=== PATIENT | male | born 1960 | race Caucasian/White ===

== ENCOUNTER → 2017-02-01 | Emergency (ER) | payer MEDICAID ==
[2017-02-01 19:18] VITALS: BP 130/90; PULSE 109; RESP 18; TEMP 97.9; O2SAT 97
== END | disposition left against medical advice (07) ==
DX: Z53.21 Procedure and treatment not carried out due to patient leaving prior to being seen by health care provider (principal)

== ENCOUNTER 2017-06-12 22:24 | Emergency (ER) | payer MEDICAID ==
[2017-06-12 22:33] VITALS: TEMP 98.1
--- NOTE | 2017-06-12 22:33 | EDPHY ---
H & P Stated Complaint: back pain HPI/ROS: HPI CHIEF COMPLAINT: Back pain x2 weeks. HISTORY OF PRESENT ILLNESS: This patient very pleasant 56-year-old male significant past medical history for colorectal cancer status post colon resection, hypertension, diabetes, he presents to the emergency room with back pain x2 weeks. The patient reports to me that over the past 2 weeks she has had intermittent severe sharp stabbing back pain it is a located left CVA region and left posterior superior iliac crest. It does not radiate down his leg but he does tell me at times radiates into his left testicle. Denies urinary symptoms. Denies hematuria or dysuria. Denies abdominal pain. Pain is mainly located left flank left posterior SI joint. Sharp stabbing in nature. He denies is going down his gluteus or down his leg. Denies pain going to his knee or foot. 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 Denies direct trauma. He denies bowel or bladder incontinence or retention. Denies saddle anesthesia. Denies midline lumbar back pain. Denies fever. Denies focal weakness numbness or tingling. No chest pain or shortness of breath. No pleuritic pain. Past Medical History: Hypertension, diabetes, colon cancer Past Surgical History: Colon resection Social History: Denies daily use of alcohol drugs works as a cook. Family History: Noncontributory ROS REVIEW OF SYSTEMS: A comprehensive 10 point review of systems is otherwise negative aside from elements mentioned in the history of present illness. Exam Constitutional appears well nontoxic, triage nursing summary reviewed, vital signs reviewed, awake/alert. Eyes normal conjunctivae and sclera, EOMI, PERRLA. HENT normal inspection, atraumatic, moist mucus membranes, no epistaxis, neck supple/ no meningismus, no raccoon eyes. Respiratory clear to auscultation bilaterally, normal breath sounds, no respiratory distress, no wheezing. Cardiovascular rate normal, regular rhythm, no murmur, no edema, distal pulses normal. Gastrointestinal soft, non-tender, no rebound, no guarding, normal bowel sounds, no distension, no pulsatile mass. Genitourinary no CVA tenderness. Musculoskeletal lumbar spine: no midline vertebral tenderness, full range of motion, no calf swelling, no tenderness of extremities, no meningismus, good pulses, neurovascularly intact. Nontender back exam. Skin pink, warm, & dry, no rash, skin atraumatic. Neurologic awake, alert and oriented x 3, AAOx3, moves all 4 extremities equally, motor intact, sensory intact, CN II-XII intact, normal cerebellar, normal vision, normal speech. Psychiatric normal mood/affect. Heme/Lymph/Immune no lymphadenopathy. Differential Diagnosis: Includes but is not limited to in a particular order compression fracture, sciatica, nerve root compression, annular tear, kidney stone, hydronephrosis, kidney tumor, metastatic disease, Doubt AAA (given pain has been present for two weeks) Medical Decision Making: Plan for this patient x-ray lumbar spine, basic blood work, CT abdomen pelvis without contrast to help evaluate left acute flank pain radiating to left testicle at times. Re-evaluation: 2257: Patient is declining any pain medicine here in the emergency room. CT scan of the abdomen pelvis without IV contrast The results of the study are negative for acute kidney stone, there is degenerative joint disease seen on his back but no significant fracture no evidence kidney stone, no evidence of hydronephrosis on the left side. He does have a kidney stone in the right kidney nonobstructing. Gallstones present. But this is not where his pain is. The study was read by Dr. Davidson I viewed the images myself on the PACS system. 0038: Blood work reviewed, CT scan reviewed. Urinalysis reviewed shows mild hematuria. Will have him follow up with his primary care doctor. Also will have him follow-up with his primary care doctor about his l back pain. Most likely this is disc disease versus sciatica. I did spend a great deal time with him at bedside explaining his lab results and CT scan. I have also given copies of this to take to his primary care doctor. He understands most likely this is arthritic process in disc disease giving him his low back pain. He understands return emergency room if he has any worsening symptoms questions concerns. Limited supply of [place] given. I do recommend he ice his back, takes anti-inflammatories and only takes [place] if he has severe pain. Source: Patient - Personal History Current Tetanus/Diphtheria Vaccine: Yes Current Tetanus Diphtheria and Acellular Pertussis (TDAP): Yes - Medical/Surgical History Hx Asthma: No Hx Chronic Respiratory Disease: No Hx Diabetes: Yes Hx Cardiac Disease: Yes Hx Renal Disease: Yes Hx Cirrhosis: No Hx Alcoholism: Yes Hx HIV/AIDS: No Hx Splenectomy or Spleen Trauma: No Other PMH: PMH:hypertension, ptsd, tbi, diab type 2. Colon Ca surgery 3 months ago 10/2016. - Social History Smoking Status: Former smoker Constitutional: Initial Vital Signs Temperature (C) 36.7 C 06/12/17 22:29 Heart Rate 67 06/12/17 22:29 Respiratory Rate 16 06/12/17 22:29 Blood Pressure 143/79 H 06/12/17 22:29 O2 Sat (%) 96 06/12/17 22:29 O2 Delivery Mode Room Air Allergies/Adverse Reactions: No Known Allergies Allergy (Verified 06/18/16 16:41) Home Medications: Medication Instructions Recorded Lisinopril 0.5 tab DAILY 08/14/16 metFORMIN HCL [Metformin HCl ER] 500 mg PO 09/08/16 Aspirin 06/12/17 Glipizide 06/12/17 Tragenta 06/12/17 Medical Decision Making - Diagnostics Imaging Results: Imaging Impressions Abdomen/Pelvis CT 06/12/17 22:45 Impression: 1. Single nonobstructing right renal calculus with no obstructive uropathy identified. 2. Cholelithiasis without findings to suggest cholecystitis. 3. Mild prostatic enlargement. 4. Mild spinal degenerative changes seen. Results called and discussed with Davidson Luciano MD on 06/12/2017 at 23:37 - Data Points Laboratory Results: Laboratory Results 06/12/17 22:55 06/12/17 22:55 06/12/17 06/12/17 06/12/17 23:50 22:55 22:55 WBC 11.47 10^3/uL H 10^3/uL (3.80-9.50) RBC 4.56 10^6/uL 10^6/uL (4.40-6.38) Hgb 14.6 g/dL g/dL (13.7-17.5) Hct 41.5 % % (40.0-51.0) MCV 91.0 fL fL (81.5-99.8) MCH 32.0 pg pg (27.9-34.1) MCHC 35.2 g/dL g/dL (32.4-36.7) RDW 11.9 % % (11.5-15.2) Plt Count 157 10^3/uL 10^3/uL (150-400) MPV 9.9 fL fL (8.7-11.7) Neut % (Auto) 87.5 % H % (39.3-74.2) Lymph % (Auto) 6.3 % L % (15.0-45.0) Harvey % (Auto) 4.6 % % (4.5-13.0) Eos % (Auto) 0.9 % % (0.6-7.6) Baso % (Auto) 0.3 % % (0.3-1.7) Nucleat RBC Rel Count 0.0 % % (0.0-0.2) Absolute Neuts (auto) 10.03 10^3/uL H 10^3/uL (1.70-6.50) Absolute Lymphs (auto) 0.72 10^3/uL L 10^3/uL (1.00-3.00) Absolute Monos (auto) 0.53 10^3/uL 10^3/uL (0.30-0.80) Absolute Eos (auto) 0.10 10^3/uL 10^3/uL (0.03-0.40) Absolute Basos (auto) 0.04 10^3/uL 10^3/uL (0.02-0.10) Absolute Nucleated RBC 0.00 10^3/uL 10^3/uL (0-0.01) Immature Gran % 0.4 % % (0.0-1.1) Immature Gran # 0.05 10^3/uL 10^3/uL (0.00-0.10) Sodium 144 mEq/L mEq/L (134-144) Potassium 3.9 mEq/L mEq/L (3.5-5.2) Chloride 110 mEq/L mEq/L (97-110) Carbon Dioxide 19 mEq/l L mEq/l (22-31) Anion Gap 15 mEq/L mEq/L (8-16) BUN 24 mg/dL H mg/dL (7-23) Creatinine 1.0 mg/dL mg/dL (0.7-1.3) Estimated GFR > 60 Glucose 165 mg/dL H mg/dL (70-100) Calcium 9.3 mg/dL mg/dL (8.5-10.4) Urine Color YELLOW Urine Appearance CLEAR Urine pH 5.0 (5.0-7.5) Ur Specific [place] 1.031 H (1.002-1.030) Urine Protein NEGATIVE (NEGATIVE) Urine Ketones 1+ H (NEGATIVE) Urine Blood 2+ H (NEGATIVE) Urine Nitrate NEGATIVE (NEGATIVE) Urine Bilirubin NEGATIVE (NEGATIVE) Urine Urobilinogen 4.0 EU H EU (0.2-1.0) Ur Leukocyte Esterase NEGATIVE (NEGATIVE) Urine RBC 25-50 /hpf H /hpf (0-3) Urine WBC 1-3 /hpf /hpf (0-3) Ur Epithelial Cells NONE SEEN /lpf /lpf (NONE-1+) Urine Mucus TRACE /lpf /lpf (NONE-1+) Urine Glucose NEGATIVE (NEGATIVE) Departure - Departure Disposition: Home, Routine, Self-Care Clinical Impression: Back pain Qualifiers: Back pain location: low back pain Chronicity: acute Back pain laterality: left Sciatica presence: unspecified whether sciatica present Qualified Code(s): M54.5 - Low back pain Condition: Good Instructions: Acute Low Back Pain (ED), Lumbar Radiculopathy (ED), Hydrocodone/ Acetaminophen (By mouth), Hematuria (ED) Additional Instructions: 1.Ice your back. 2. Follow-up with your primary care doctor. 3. Try to rest, take anti-inflammatories like tylenol and motrin. 4. Only take [place] if you have severe pain. Referrals: Milady Joiner PA [Primary Care Provider] - As per Instructions
[2017-06-12 22:58] LABS: % IMMATURE GRANULYOCYTES 0.4 % (0.0-1.1); ABSOLUTE IMMATURE GRANULOCYTES 0.05 10^3/uL (0.00-0.10); ADD DIFF? NO; ADD MORPH? NO; ADD SCAN? NO; ATYPICAL LYMPHOCYTE FLAG 0 (0-99); FRAGMENT RBC FLAG 0 (0-99); HEMATOCRIT 41.5 % (40.0-51.0); HEMOGLOBIN 14.6 g/dL (13.7-17.5); LEFT SHIFT FLG 10 (0-99); LIPEMIA HEMOLYSIS FLAG 90 (0-99); MEAN CELL HEMOGLOBIN CONCENTR. 35.2 g/dL (32.4-36.7); MEAN PLATELET VOLUME 9.9 fL (8.7-11.7); PLATELET CLUMPS FLAG 10 (0-99); PLATELET COUNT 157 10^3/uL (150-400); RED BLOOD CELL COUNT 4.56 10^6/uL (4.40-6.38); RED CELL DISTRIBUTION WIDTH 11.9 % (11.5-15.2)
[2017-06-12 23:10] LABS: ANION GAP 15 mEq/L (8-16); CALCIUM 9.3 mg/dL (8.5-10.4); CARBON DIOXIDE 19 mEq/l (22-31); CHLORIDE 110 mEq/L (97-110); GLOMERULAR FILTRATION RATE > 60; GLUCOSE 165 mg/dL (70-100); POTASSIUM 3.9 mEq/L (3.5-5.2); SODIUM 144 mEq/L (134-144)
[2017-06-13 00:25] LABS: COLOR YELLOW; LEUKOCYTE ESTERASE,URINE NEGATIVE (NEGATIVE); NITRITE,URINE NEGATIVE (NEGATIVE)
[2017-06-13 00:34] LABS: MUCUS TRACE /lpf (NONE-1+); RBC,URINE 25-50 /hpf (0-3)
[2017-06-13] MEDS ORDERED: HYDROCOD/APAP 5/325 PREPACK#6 BTL TAKEHOME ONE (00:37)
[2017-06-13 00:46] VITALS: BP 136/67; PULSE 69; RESP 14; O2SAT 97
== END 2017-06-13 00:51 | disposition home or self-care (01) ==
DX: M54.5 Low back pain (principal); E11.9 Type 2 diabetes mellitus without complications; I10 Essential (primary) hypertension; Z79.82 Long term (current) use of aspirin; Z79.84 Long term (current) use of oral hypoglycemic drugs; Z85.038 Personal history of other malignant neoplasm of large intestine; Z87.891 Personal history of nicotine dependence

== ENCOUNTER 2017-11-01 10:54 | Emergency (ER) | payer MEDICAID ==
[2017-11-01] MEDS ORDERED: NS 1,000 ML IV ONE ×2 (11:31)
--- NOTE | 2017-11-01 11:35 | EDPHY ---
General Narrative: CHIEF COMPLAINT: Diarrhea HISTORY OF PRESENT ILLNESS: Patient complains of diarrhea that started Wednesday evening. This was sudden onset. Constant duration with 20-25 episodes of watery diarrhea each day. No bright red blood in the stools. Did have 2 bouts of vomiting that preceded this. No blood in the vomit. No chest pain or shortness of breath. No abdominal pain but he does have some discomfort with the bowel movements. Unable to tolerate solids. Liquids seem to run directly through him he says. No fever. No chills. No known sick contacts. He does reside at the [facility] at this time. Not currently working. No other associated complaints or modifying factors. REVIEW OF SYSTEMS: Ten systems reviewed and are negative unless otherwise noted in the HPI PCP: Dr. Virgen SPECIALISTS: Dr. Horn, Surgery PAST MEDICAL HISTORY: Type 2 diabetes, hypertension, Colon cancer 1 years ago status post partial colectomy PAST SURGICAL HISTORY: Partial colectomy is 21in 2015 SOCIAL HISTORY: Nonsmoker. Occasional alcohol. No drug use. Retired from the [employer] FAMILY HISTORY: Noncontributory EXAMINATION General Appearance: Alert, no distress Head: normocephalic, atraumatic Eyes: Pupils equal and round, no conjunctival pallor or injection ENT, Mouth: Mucous membranes dry. Airway is patent Neck: Normal inspection, supple, non-tender Respiratory: Lungs are clear to auscultation Cardiovascular: Tachycardic rate. Regular rhythm. No murmur. Gastrointestinal: Abdomen is soft and nontender. nondistended. No tympany. No rigidity. Bowel sounds are active in all 4 quadrants. Nonacute abdomen Neurological: A&O, nonfocal, strength is symmetric. Skin: Warm and dry, no rash. No petechiae or purpura Extremities: Nontender, no pedal edema Psychiatric: Mood and affect normal DIFFERENTIAL DIAGNOSES: Including but not limited to norovirus, infectious diarrhea, viral diarrhea, enteritis, colitis, dehydration MDM: 11:30 a.m. Multiple bouts of watery diarrhea over 48 hr. The patient has a history and examination that suggest norovirus. He is in no acute distress with mild tachycardia. No tachypnea. No fever. He does not meet SIRS criteria. IV fluid has been ordered. Laboratory studies pending. He is in no acute distress. 12:30 p.m. Patient re-evaluated. Laboratory studies are consistent with diarrhea. He is still afebrile and his vital signs are improving. Continue with IV fluid. I do not feel he warrants CT scan at this time. 1:30 p.m. Patient re-evaluated. He has received 2 L IV fluid. Laboratory studies discussed. There is a GI pathogen panel pending that will not returned within the past 2 hr. He is tolerating liquid intake. He has not had any diarrhea since arrival to the emergency department. I still do not feel that he warrants any CT scan of the abdomen pelvis at this time as he has no abdominal pain. At this point he will be discharged home with antiemetics, instructions to increase his fluid intake. We have also discussed ED precautions for any abdominal pain of any kind, fevers, worsening diarrhea, blood he is discharged home stable condition. SUPERVISION: Patient was independently examined, but I discussed the case with my secondary supervising physician Dr. Barnes - History Smoking Status: Never smoked - Objective Vital Signs: Initial Vital Signs Temperature (C) 98.4 F 11/01/17 11:00 Heart Rate 123 H 11/01/17 11:00 Respiratory Rate 18 11/01/17 11:00 Blood Pressure 109/61 11/01/17 11:00 O2 Sat (%) 98 11/01/17 11:00 O2 Delivery Mode Room Air Allergies/Adverse Reactions: No Known Allergies Allergy (Verified 11/01/17 11:00) Home Medications: Medication Instructions Recorded Lisinopril 0.5 tab DAILY 08/14/16 metFORMIN HCL [Metformin HCl ER] 500 mg PO 09/08/16 Aspirin 06/12/17 Glipizide 06/12/17 Tragenta 06/12/17 FLUoxetine [PROzac] 10 mg PO 11/01/17 Ondansetron Odt [Zofran Odt 4 mg 4 mg PO Q6 PRN #12 tab 11/01/17 (*)] Promethazine HCl [Phenergan 25mg 25 mg PO Q8 PRN #12 tab 11/01/17 (*)] Laboratory Results: Laboratory Results 11/01/17 11:25 11/01/17 11:25 11/01/17 11/01/17 11/01/17 12:55 11:25 11:25 WBC 11.25 10^3/uL H 10^3/uL (3.80-9.50) RBC 5.20 10^6/uL 10^6/uL (4.40-6.38) Hgb 16.8 g/dL g/dL (13.7-17.5) Hct 46.6 % % (40.0-51.0) MCV 89.6 fL fL (81.5-99.8) MCH 32.3 pg pg (27.9-34.1) MCHC 36.1 g/dL g/dL (32.4-36.7) RDW 12.7 % % (11.5-15.2) Plt Count 223 10^3/uL 10^3/uL (150-400) MPV 9.2 fL fL (8.7-11.7) Neut % (Auto) 73.1 % % (39.3-74.2) Lymph % (Auto) 14.9 % L % (15.0-45.0) [place] % (Auto) 8.7 % % (4.5-13.0) Eos % (Auto) 2.0 % % (0.6-7.6) Baso % (Auto) 0.4 % % (0.3-1.7) Nucleat RBC Rel Count 0.0 % % (0.0-0.2) Absolute Neuts (auto) 8.21 10^3/uL H 10^3/uL (1.70-6.50) Absolute Lymphs (auto) 1.68 10^3/uL 10^3/uL (1.00-3.00) Absolute Monos (auto) 0.98 10^3/uL H 10^3/uL (0.30-0.80) Absolute Eos (auto) 0.23 10^3/uL 10^3/uL (0.03-0.40) Absolute Basos (auto) 0.05 10^3/uL 10^3/uL (0.02-0.10) Absolute Nucleated RBC 0.00 10^3/uL 10^3/uL (0-0.01) Immature Gran % 0.9 % % (0.0-1.1) Immature Gran # 0.10 10^3/uL 10^3/uL (0.00-0.10) Sodium 142 mEq/L mEq/L (134-144) Potassium 4.0 mEq/L mEq/L (3.5-5.2) Chloride 105 mEq/L mEq/L (97-110) Carbon Dioxide 19 mEq/l L mEq/l (22-31) Anion Gap 18 mEq/L H mEq/L (8-16) BUN 18 mg/dL mg/dL (7-23) Creatinine 1.1 mg/dL mg/dL (0.7-1.3) Estimated GFR > 60 Glucose 149 mg/dL H mg/dL (70-100) Calcium 9.7 mg/dL mg/dL (8.5-10.4) Total Bilirubin 1.8 mg/dL H mg/dL (0.1-1.4) Conjugated Bilirubin 0.4 mg/dL mg/dL (0.0-0.5) Unconjugated Bilirubin 1.4 mg/dL H mg/dL (0.0-1.1) AST 25 IU/L IU/L (17-59) ALT 59 IU/L IU/L (21-72) Alkaline Phosphatase 96 IU/L IU/L (38-126) Total Protein 7.6 g/dL g/dL (6.3-8.2) Albumin 4.5 g/dL g/dL (3.5-5.0) Lipase 114 IU/L IU/L (23-300) Urine Color SYBIL Urine Appearance CLEAR Urine pH 5.0 (5.0-7.5) Ur Specific [place] 1.026 (1.002-1.030) Urine Protein NEGATIVE (NEGATIVE) Urine Ketones NEGATIVE (NEGATIVE) Urine Blood NEGATIVE (NEGATIVE) Urine Nitrate NEGATIVE (NEGATIVE) Urine Bilirubin NEGATIVE (NEGATIVE) Urine Urobilinogen NEGATIVE EU EU (0.2-1.0) Ur Leukocyte Esterase NEGATIVE (NEGATIVE) Urine RBC 3-5 /hpf H /hpf (0-3) Urine WBC 1-3 /hpf /hpf (0-3) Ur Epithelial Cells TRACE /lpf /lpf (NONE-1+) Calcium Oxalate Crystal PRESENT /hpf /hpf (NONE-1+) Urine Bacteria TRACE /hpf H /hpf (NONE SEEN) Urine Mucus 4+ /lpf H /lpf (NONE-1+) Urine Glucose 1+ H (NEGATIVE) Microbiology Results: MICROBIOLOGY 11/01/17 12:55 Stool Gastrointestinal Tract Panel (PCR) - Final No Organism Detected Medications Given: Discontinued Medications Sodium Chloride (Ns) 1,000 mls @ 0 mls/hr IV EDNOW ONE; Wide Open PRN Reason: Protocol Stop: 11/01/17 11:32 Last Admin: 11/01/17 12:00 Dose: 1,000 mls Sodium Chloride (Ns) 1,000 mls @ 0 mls/hr IV EDNOW ONE; Wide Open PRN Reason: Protocol Stop: 11/01/17 11:32 Last Admin: 11/01/17 12:34 Dose: 1,000 mls Departure - Departure Disposition: Home, Routine, Self-Care Clinical Impression: Diarrhea Qualifiers: Diarrhea type: unspecified type Qualified Code(s): R19.7 - Diarrhea, unspecified Condition: Good Instructions: Dehydration (ED), Gastroenteritis (ED), Acute Diarrhea (ED) Additional Instructions: 1. Increase fluid intake 2. Nausea medication as prescribed as needed 3. ED precautions as discussed 4. Follow up with established primary care physician in the next 1-2 days Referrals: Paola Smith, PAC [Primary Care Provider] - As per Instructions Prescriptions: Ondansetron Odt [Zofran Odt 4 mg (*)] 4 mg PO Q6 PRN #12 tab PRN Reason: Nausea/Vomiting, Use 1st Promethazine HCl [Phenergan 25mg (*)] 25 mg PO Q8 PRN #12 tab PRN Reason: Nausea/Vomiting, Use 1st
[2017-11-01 11:37] LABS: % IMMATURE GRANULYOCYTES 0.9 % (0.0-1.1); ADD DIFF? NO; ADD MORPH? NO; ADD SCAN? NO; ATYPICAL LYMPHOCYTE FLAG 0 (0-99); FRAGMENT RBC FLAG 0 (0-99); HEMATOCRIT 46.6 % (40.0-51.0); HEMOGLOBIN 16.8 g/dL (13.7-17.5); LEFT SHIFT FLG 10 (0-99); LIPEMIA HEMOLYSIS FLAG 90 (0-99); MEAN CELL HEMOGLOBIN 32.3 pg (27.9-34.1); MEAN CELL HEMOGLOBIN CONCENTR. 36.1 g/dL (32.4-36.7); MEAN CELL VOLUME 89.6 fL (81.5-99.8); MEAN PLATELET VOLUME 9.2 fL (8.7-11.7); PLATELET CLUMPS FLAG 0 (0-99); PLATELET COUNT 223 10^3/uL (150-400); RED CELL DISTRIBUTION WIDTH 12.7 % (11.5-15.2)
[2017-11-01 11:49] LABS: ALANINE AMINOTRANSFERASE 59 IU/L (21-72); ALBUMIN 4.5 g/dL (3.5-5.0); ALKALINE PHOSPHATASE 96 IU/L (38-126); ANION GAP 18 mEq/L (8-16); ASPARTATE AMINOTRANSFERASE 25 IU/L (17-59); BILIRUBIN,TOTAL 1.8 mg/dL (0.1-1.4); BILIRUBIN-CONJUGATED 0.4 mg/dL (0.0-0.5); BILIRUBIN-UNCONJUGATED 1.4 mg/dL (0.0-1.1); CALCIUM 9.7 mg/dL (8.5-10.4); CARBON DIOXIDE 19 mEq/l (22-31); CHLORIDE 105 mEq/L (97-110); CREATININE 1.1 mg/dL (0.7-1.3); GLOMERULAR FILTRATION RATE > 60; GLUCOSE 149 mg/dL (70-100); SODIUM 142 mEq/L (134-144); TOTAL PROTEIN 7.6 g/dL (6.3-8.2)
[2017-11-01 13:18] LABS: COLOR AMBER; LEUKOCYTE ESTERASE,URINE NEGATIVE (NEGATIVE); NITRITE,URINE NEGATIVE (NEGATIVE)
[2017-11-01 13:46] VITALS: BP 104/68; PULSE 76; RESP 16; TEMP 97.9; O2SAT 95
[2017-11-01 14:02] LABS: BACTERIA TRACE /hpf (NONE SEEN); MUCUS 4+ /lpf (NONE-1+)
== END 2017-11-01 13:55 | disposition home or self-care (01) ==
DX: R19.7 Diarrhea, unspecified (principal); I10 Essential (primary) hypertension; E11.9 Type 2 diabetes mellitus without complications; E86.9 Volume depletion, unspecified; Z79.82 Long term (current) use of aspirin; Z79.84 Long term (current) use of oral hypoglycemic drugs; Z85.038 Personal history of other malignant neoplasm of large intestine

== ENCOUNTER 2017-11-23 10:30 | Emergency (ER) | payer MEDICAID ==
[~2017-11-23 10:30] MED LIST: AMOXICILLIN/CLAVULANATE POT 875/125 MG TAB PO SCH
[2017-11-23 12:23] LABS: PLATELET COUNT 150 10^3/uL (150-400)
--- NOTE | 2017-11-23 12:23 | EDPHY ---
Addendum entered and electronically signed by Wilber Hearn PAC 11/23/17 16:50 : 4:50 p.m.: Dr. Jose Davidson and Dr. Chantal Eric have evaluated the patient in the ER, have debrided the wound, feel the patient does not need to be admitted to the hospital, recommended Augmentin 875 twice daily for 5 days and follow up in the [facility]ound Clinic for further treatment. The egg caser has been involved in this case, has filled the patient's Augmentin prescription and assisted him getting back to the [place] [facility]. Original Note: H & P Smoking Status: Never smoked Time Seen by Provider: 11/23/17 12:11 HPI/ROS: CHIEF COMPLAINT: "I have this thing on my foot" HISTORY OF PRESENT ILLNESS: 57-year-old male history of diabetes, homelessness , took the bus to the ER complaining of progressively enlarging lesion to the plantar aspect of his left forefoot approximately 2nd 3rd MTP location. Tender to palpation. Denies known trauma history. No fever no chills. No lymphangitic streaking. No nausea no vomiting. No flu-like symptoms. REVIEW OF SYSTEMS: A ten point review of systems was performed and is negative with the exception of the items mentioned in the HPI PAST MEDICAL & SURGICAL HISTORY: MRSA. Diabetes. SOCIAL HISTORY:Homeless PHYSICAL EXAM (Prior to examination, patient consented to physical exam, hands were washed and my usual and customary physical exam procedures followed) 1) GENERAL: Well-developed, well-nourished, alert and oriented. Appears to be in no acute distress. 2) HEAD: Normocephalic, atraumatic 3) HEENT: Pupils equal, round, reactive to light bilaterally. Sclera anicteric. 4) NECK: Full range of motion, no meningeal signs. 5) LUNGS: Clear auscultation bilaterally, no wheezes, no rhonchi, no retractions. 6) HEART: Regular rate and rhythm, no murmur, no heave, no gallop. 7) ABDOMEN: No guarding, no rebound, no focal tenderness, 8) MUSCULOSKELETAL: Left foot plantar aspect forefoot approximately 2nd 3rd MTP level ulcerated foul-smelling wound. No crepitus. No lymphangitic streaking. No erythema. DP PT pulses present and brisk. 9) BACK: no obvious trauma, no visual or palpable abnormality. 10) SKIN: No rash, no petechiae. 11) Psychiatric: Patient is oriented X 3, there is no agitation. DIFFERENTIAL DIAGNOSIS: In no particular include but limited to cellulitis, necrotizing fasciitis, osteomyelitis (Wilber Hearn) Constitutional: Initial Vital Signs Temperature (C) 36.4 C 11/23/17 10:37 Heart Rate 97 11/23/17 10:37 Respiratory Rate 18 11/23/17 10:37 Blood Pressure 120/92 H 11/23/17 10:37 O2 Sat (%) 98 11/23/17 10:37 O2 Delivery Mode Room Air Allergies/Adverse Reactions: No Known Allergies Allergy (Verified 11/23/17 10:35) Home Medications: Medication Instructions Recorded Amoxicillin/Clavulanate Pot 875 mg PO BID #10 tab 11/23/17 [Augmentin 875 mg tab] Aspirin EC [Aspirin EC 81 mg (*)] 81 mg PO DAILY 11/23/17 Atorvastatin Calcium [Lipitor 40 40 mg PO DAILY 11/23/17 mg (*)] FLUoxetine [Prozac 20 MG (*)] 20 mg PO DAILY 11/23/17 Gabapentin [Neurontin 100 MG (*)] 100 mg PO TID 11/23/17 Linagliptin [Tradjenta] 5 mg PO DAILY 11/23/17 Linagliptin [Tradjenta] 5 mg PO DAILY #3 tablet 11/23/17 Lisinopril 10 mg PO DAILY #3 tablet 11/23/17 Lisinopril [Zestril 20 mg (*)] 20 mg PO DAILY 11/23/17 Metformin HCl [Metformin 1000 mg] 1,000 mg PO BID 11/23/17 Naltrexone HCl 50 mg PO DAILY 11/23/17 Tamsulosin HCl [Flomax 0.4 MG (*)] 0.4 mg PO DAILY 11/23/17 glipiZIDE [Glipizide] 10 mg PO BID 11/23/17 metFORMIN HCL [Metformin HCl ER] 500 mg PO DAILY #3 tab.er.24 11/23/17 MDM/Departure - MDM Imaging Results: Imaging Impressions Foot X-Ray 11/23/17 12:17 Impression: No evidence of osteomyelitis. Lower Extremity MRI 11/23/17 12:53 Impression: Skin wound in the plantar fat pad overlying the 2nd metatarsophalangeal joint to the level of the capsule. Probable early osteomyelitis at the 2nd proximal phalanx. Overlying cellulitis and adjacent mild myositis interosseous muscles. Possible osteomyelitis at the adjacent lateral sesamoid at the 1st metatarsophalangeal joint, with a bipartite appearance versus sesamoiditis. Results called and discussed with Dakota Montesinos M.D., on November 23, 2017 at 1540. Medications Given: Discontinued Medications Sodium Chloride (Ns) 1,000 mls @ 0 mls/hr IV ONCE ONE PRN Reason: Wide Open Stop: 11/23/17 13:01 Last Admin: 11/23/17 13:22 Dose: 1,000 mls ED Course/Re-evaluation: 3:45 p.m.: Consultation Dr. Jose Davidson. Patient shows no signs of surrounding cellulitis. He recommended holding on antibiotics until wound debridement and cultures performed by surgery 4:10 p.m.: Consultation with Dr. Chantal Eric for surgical/wound consultation ( Wilber Hearn) This patient was signed out to me at shift change. The patient was assessed by Dr. Chantal Eric and also by Jose Davidson from Infectious Disease. They have decided that admission is not warranted. They would like to treat the patient with Augmentin. 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 Davidson does not believe he requires coverage for that at this time. They do want to cover anaerobes well which is why he is on Augmentin. He has close follow-up with the wound clinic and Dr. Eric. (Yoandy Ellis) PHYSICIAN DOCUMENTATION: The patient was evaluated and managed by the Physician Solutions Developer and myself. I have reviewed the chart and agree with the findings and plan of care as documented. In addition, I examined the patient myself at 1235. History confirmed as left foot ulcer plantar surface for 3 weeks. Physical findings as follows: Patient has 1 cm ulcer with surrounding scab. No crepitus. No pus. No surrounding redness warmth or lymphangitis. Differential includes diabetic ulcer but also osteomyelitis. Plan for MRI w/wo contrast, discussed with Ramez, and admission for IV antibiotics if positive, wound care and medication refill and outpatient referral to wound clinic if negative. 1536: Patient has osteomyelitis of his 4th phalanx on MRI per Dr. Mcmillan, will admit for IV antibiotics illness homeless diabetic with deep space infection. We discussed with Dr. Aisha Squires who will admit. I am the secondary supervising physician. (Dakota Montesinos) - Depart Disposition: Home, Routine, Self-Care Clinical Impression: Osteomyelitis of foot, left, acute Condition: Good
[2017-11-23] MEDS ORDERED: NS 1,000 ML IV ONE (13:00)
[2017-11-23 14:20] VITALS: RESP 16
[2017-11-23] MEDS ORDERED: GADOBUTROL 10 ML VIAL IVP ONE (14:48)
[2017-11-23] MEDS ORDERED: ONDANSETRON DISINTEGRATING 4 MG TAB PO PRN (16:24)
[2017-11-23] MEDS ORDERED: ACETAMINOPHEN 325 MG TAB PO PRN (16:24)
[2017-11-23] MEDS ORDERED: ONDANSETRON 4 MG/2 ML VIAL IVP PRN (16:24)
[2017-11-23] MEDS ORDERED: D50W 25 GM/50 ML SYR IVP PRN (16:25)
[2017-11-23 17:37] VITALS: BP 120/89; PULSE 76; TEMP 98.6; O2SAT 96
[2017-11-23] MEDS ORDERED: INSULIN LISPRO 100 UNIT/ML SC SCH (18:00)
--- NOTE | 2017-11-23 18:29 | GCON ---
[f rep st] CONSULTATION DATE OF CONSULTATION: 11/23/2017 REQUESTING PROVIDER: ISA Gary REASON FOR CONSULTATION: Osteomyelitis of the left 2nd toe. HISTORY OF PRESENT ILLNESS: Patient is a 57-year-old male with a past medical history of diabetes me llitus and peripheral neuropathy who is currently homeless, who I am asked to see in consultation for a left foot plantar ulceration with radiographic concern for osteomyelitis. The patient describes h aving an ulceration present over the plantar aspect of the left foot under the 2nd toe for approximat bob 2-1/2 to 3 weeks. He does not recall any injury to his foot. He does have underlying peripheral neuropathy and decreased sensation in his foot. He has been wearing a work-type boot. The patient has had some drainage onto his sock which has appeared bloody. He has not experienced fever or chill s. He does note that he does not feel totally well with some malaise. He has not had erythema over the foot, lower leg, or lymphangitis. He has had prior ulceration in the same location on 2 occasion s remotely, which required local debridement and oral antibiotic therapy. He notes one of these was associated with MRSA. The patient has not experienced nausea, vomiting or diarrhea. He has been out of his medications for diabetes due to a change in his healthcare providers. MRI of the foot was pe rformed, which raised concern of possible osteomyelitis at the base of the 2nd toe. Given the above findings, I am now asked to assist in his ongoing management. PAST MEDICAL HISTORY: Type 2 diabetes mellitus, colon cancer. PAST SURGICAL HISTORY: Resection of colon cancer, prior head injury, debridement of foot. MEDICATIONS: Prior to admission: None due to him being out of his medicines; normally patient takes naltrexone 50 mg p.o. daily, Neurontin 100 mg p.o. t.i.d., Lipitor 40 mg p.o. daily, Flomax 0.4 mg p .o. daily, linagliptin 5 mg p.o. daily, metformin 1000 mg p.o. b.i.d., lisinopril 20 mg p.o. daily, g lipizide 10 mg p.o. b.i.d., Prozac 20 mg p.o. daily, aspirin 81 mg p.o. daily. ALLERGIES: No known drug allergies. SOCIAL HISTORY: Patient chews tobacco. He has a history of drinking alcohol but no active alcohol u se for 2 months. He denies any drug use. He currently is homeless and has been staying in the [facility]. FAMILY HISTORY: Noncontributory. REVIEW OF SYSTEMS: Outside that noted in the HPI, the remainder of 10-system review is unremarkable. PHYSICAL EXAMINATION: VITAL SIGNS: Temperature 36.7, heart rate 68, respiratory rate 16, blood pres sure 135/84, oxygen saturation 97% on room air. GENERAL: Patient is well nourished, well developed, in no acute distress. He appears nontoxic. HEENT: There is no scleral icterus, conjunctival injec tion, or conjunctival petechiae. Oropharynx shows moist mucous membranes with dentition in fair to p oor repair. There is no nasal discharge. There is no tenderness over the frontal, maxillary or mast oid area. NECK: Supple without lymphadenopathy or palpable thyromegaly. CHEST: Clear to auscultat ion bilaterally without adventitious sounds. Respiratory effort is normal. CARDIOVASCULAR: Regular rate and rhythm without murmurs, gallops, or rubs. ABDOMEN: Soft, nontender, nondistended. Well-h ealed surgical scar. No palpable organomegaly. Bowel sounds are present. MUSCULOSKELETAL: The lef t foot shows an ulceration measuring approximately 1.5 cm in diameter with surrounding callus over th e plantar aspect of the left foot below the 2nd toe. There is no purulent drainage present. Toe was debrided by Dr. Eric in the emergency department with clean granulation at its base and removal of callus. The area does probe toward the base of the metatarsal, but there is no palpable or exposed b one. The dorsal aspect of the foot has faint erythema and edema. There is mild associated warmth. LYMPHATICS: No cervical or supraclavicular nodes. No lymphangitis in the left lower extremity. JESSENIA ROLOGIC: Patient is alert and interacts appropriately with the examiner. Cranial nerves 2-12 are gr ossly intact. Sensation is decreased in the lower extremities, but not absent. Muscle tone and bulk are normal. LABORATORY DATA: White blood cell count 8.4, hematocrit 41.4, platelets 150, neutrophils 76%. Serum creatinine is 0.9, glucose 260. Blood cultures x2 sets are pending. Plain film of the foot shows n o evidence of osteomyelitis. MRI of the foot shows edema with some mild enhancement at the base of t he 2nd proximal phalanx with question of some cortical irregularity (when reviewed with Radiology, th is was not noted). IMPRESSION: 1. Left plantar ulceration with peripheral neuropathy and diabetes mellitus: Ulceration post debrid ement shows clean granulation tissue without evidence of abscess. There is no exposed bone present. Unclear that MRI changes represent osteomyelitis versus potentially sympathetic edema. We will need to review this further with musculoskeletal radiology when available. Currently, may have mild cell ulitis over the dorsal aspect of the foot. Will provide Augmentin 875 mg p.o. b.i.d. (MRSA history i s remote) x5 days post ulcer debridement. The patient will need pressure offloading in order to heal this ulceration. Discussed with patient that if osteomyelitis is present, this may progress and req uire additional debridement or amputation. Do not favor 6-week course of antibiotic therapy at this point in time based on clinical findings. We will continue to follow in the [facility] wit h plans for contact casting for pressure offloading if no signs or symptoms of infection at next exam ination. RECOMMENDATIONS: 1. Augmentin 875 mg orally twice daily. 2. Emphasized need for glycemic control. 3. We will follow up in [facility] later this week. 4. Plan contact cast for pressure offloading if continues to be without signs or symptoms of infecti on. 5. Follow clinical response to above measures over time. 6. Thank you for this consultation. We will follow the patient in the [facility]. The [facility] is currently closed and I have obtained the patient's phone numbers to establish a n appointment in the [facility] later this week. 7. Side effects of Augmentin were reviewed with patient. 8. Clinical findings and plan were discussed with patient in the emergency department today. /[id number]/MODL
--- NOTE | 2017-11-23 19:20 | GCON ---
[f rep st] CONSULTATION DATE OF CONSULTATION: 11/23/2017 REASON FOR CONSULTATION: Ulcer on plantar surface of foot. REQUESTING PHYSICIAN: Dr. Dakota Correa. HISTORY OF PRESENT ILLNESS: Patient presents with a wound on the plantar surface of his left foot. He reports that this has been going on for 2-1/2 weeks. Upon questioning, he reports that he has had previous ulcers in the same spot on the left foot in 2012 and 2013, one time being MRSA positive. This wound opened up again 2-1/2 weeks ago. He denies fever or chills. He reports swelling, some mild bloody discharge and a pungent odor from the wound. He denies any pain up in his upper leg or groin. The wound has been growing in size and pain in the last 2-1/2 weeks which led him to come in today. He has run out of his medications and has had difficulty getting them, so he has not currently been taking any medications for his diabetes. PAST MEDICAL HISTORY: Patient reports having colon cancer which was resected and without any recurrence. The patient also has a history of type 2 diabetes with neuropathy in the lower extremities. PAST SURGICAL HISTORY: Includes colon resection due to cancer. SOCIAL HISTORY: Patient reports he is currently homeless and has been staying at the [facility]. He mentions history of heavy alcohol use, his last drink being 1 month ago. ALLERGIES: Patient reports no known drug allergies. Family History: Diabetes Review of Systems: 10 point review of systems negative except per HPI PHYSICAL EXAM: GENERAL: Patient is alert and oriented, in no acute distress. HEENT: Head normocephalic, atraumatic. Eyes: Pupils equal and round. Extraocular movements intact. Normal conjunctivae. Nares patent. Oropharynx clear without exudate. Moist oral mucosa. NECK: Supple without lymphadenopathy. Lungs: No increased work of breathing. Cardiac: 2+ dorsalis pedis pulses bilaterally. Neuro: Decreased sensation in bilateral lower extremities. Skin: An ulcer is present on the plantar surface of his left foot. Lots of callusing with central ulceration. No diffuse erythema on the foot. Some tenderness to palpation upon the base of the 2nd phalynx. PSYCH: Normal mood. Normal affect. LABORATORY DATA: Results reviewed. X-ray of the foot showed some plantar soft tissue swelling and a gas-filled ulcer but no evidence of osteomyelitis. MRI of the left lower extremity showed a skin wound in the plantar fat pad overlying the 2nd metatarsophalangeal joint to the left of the capsule. Possible early osteomyelitis at the 2nd proximal phalanx. Overlying cellulitis and adjacent mild myositis in the interosseous muscles. Also, possible osteomyelitis at the adjacent lateral sesamoid at the 1st metatarsophalangeal joint. PROCEDURE PERFORMED: Verbal consent obtained. Time-out performed. I prepped the wound with Betadine. I debrided the callus around the wound. The wound measures approximately 1 cm x 1 cm x 1 cm. With the forceps it tunnels down to the metatarsal head but I cannot distinctly palpate bone. There does appear to be healthy granulation tissue and no obvious purulent pockets. Hemostasis achieved with electrocautery. Hydrofera Blue placed and the wound wrapped. I gave additional supplies to the patient in the event this should dislodge over the next couple of days. IMPRESSION AND PLAN: The patient is a 57-year-old man with possible osteomyelitis and a diabetic foot ulcer on the plantar surface of his left foot at the base of the 2nd metatarsal. He will follow up in the [facility]. I think he would be an excellent candidate for EpiFix and total contact cast. I emphasized the importance of him following up regularly to avoid amputation. He had his questions answered to his satisfaction. Dr. Davidson prescribed him for Augmentin 875 mg p.o. twice daily for 5 days. /[id number]/MODL MTDD
[2017-11-23] MEDS ORDERED: GABAPENTIN 100 MG CAP PO SCH (22:00)
[2017-11-24] MEDS ORDERED: TAMSULOSIN HCL 0.4 MG CAP PO SCH (09:00)
[2017-11-24] MEDS ORDERED: FLUoxetine 20 MG CAP PO SCH (09:00)
[2017-11-24] MEDS ORDERED: ATORVASTATIN CALCIUM 40 MG TAB PO SCH (09:00)
[2017-11-24] MEDS ORDERED: NON-FORMULARY NEW DRUG (Linagliptin [Tradjenta] 5 MG) PO SCH (09:00)
[2017-11-24] MEDS ORDERED: ENOXAPARIN 40 MG/0.4 ML SYR SC SCH (09:00)
[2017-11-24] MEDS ORDERED: NALTREXONE HCL 50 MG TAB PO SCH (09:00)
[2017-11-24] MEDS ORDERED: LISINOPRIL 20 MG TAB PO SCH (09:00)
[2017-11-24] MEDS ORDERED: ASPIRIN EC 81 MG TAB PO SCH (09:00)
== END 2017-11-23 17:59 | disposition home or self-care (01) ==
LOC: UNDOADMIN 15:37
DX: M86.171 Other acute osteomyelitis, right ankle and foot (principal); E11.9 Type 2 diabetes mellitus without complications; E86.9 Volume depletion, unspecified; Z79.82 Long term (current) use of aspirin; Z79.84 Long term (current) use of oral hypoglycemic drugs
CPT/HCPCS: A9585

== ENCOUNTER 2018-02-03 05:17 | Observation (INO) | payer MEDICAID ==
--- NOTE | 2018-02-02 15:56 | ASMTCMCOM ---
CM Note CM Note Notes: This CM received call from Kavitha at [facility] ([facility]) regarding patient's scheduled surgery on 02/03/18 for toe amputation and possible "respite" bed. Patient is homeless and has frequented this ER often. I have reached out to Dr. Eric who states that patient is scheduled for OP surgery and may/may not meet criteria for admission/observation. I have informed Kavitha that CM will be available to assess and reserve long term bed for patient at discharge. I have spoken with CONOR Perez at [facility] to inquire about patient's staus in the program. Per Chris, patient has not been in their "system" since 2013, but may be staying at the [facility]. CM available for disposition and reservation of a long term bed if needed Date Signed: 02/02/2018 03:56 PM Electronically Signed By:Antonietta Taylor RN
[2018-02-03] MEDS ORDERED: ceFAZolin 2 GM/SWFI 2 GM/20 ML SYR IVP ONE (06:12)
[2018-02-03] MEDS ORDERED: LR 1,000 ML IV ONE (06:15)
[2018-02-03] MEDS ORDERED: MIDAZOLAM 2 MG/2 ML VIAL IVP ONE (07:01)
--- NOTE | 2018-02-03 07:01 | PDANEPAE ---
ANE History of Present Illness Foot ulcer ANE Past Medical History - Cardiovascular History Hx Hypertension: Yes Hx Arrhythmias: No Hx Chest Pain: No Hx Coronary Artery / Peripheral Vascular Disease: No Hx CHF / Valvular Disease: No Hx Palpitations: No - Pulmonary History Hx COPD: No Hx Asthma/Reactive Airway Disease: No Hx Recent Upper Respiratory Infection: No Hx Oxygen in Use at Home: No Hx Sleep Apnea: No Sleep Apnea Screening Result - Last Documented: Positive - Neurologic History Hx Cerebrovascular Accident: No Hx Seizures: No Hx Dementia: No - Endocrine History Hx Diabetes: Yes Endocrine History Comment: NIDDM - Renal History Hx Renal Disorders: Yes Renal History Comment: LT KIDNEY FUNCTIONS AT 50% - Liver History Hx Hepatic Disorders: No - Neurological & Psychiatric Hx Hx Neurological and Psychiatric Disorders: No - Cancer History Hx Cancer: Yes Cancer History Comment: COLON - Congenital Disorder History Hx Congenital Disorders: No - GI History Hx Gastrointestinal Disorders: Yes Gastrointestinal History Comment: COLON POLYPS - Other Health History Other Health History: NON HEALING DIABETIC FOOT ULCER. MANAGED BY WOUND CLINIC - Chronic Pain History Chronic Pain: Yes (LT FOOT) - Surgical History Prior Surgeries: COLECTOMY 2016. COLONOSCOPIES ANE Review of Systems Review of Systems: - Exercise capacity METS (RN): 4 METS ANE Patient History - Allergies Allergies/Adverse Reactions: No Known Allergies Allergy (Verified 11/23/17 10:35) - Home Medications Home Medications: Aspirin EC [Aspirin EC 81 mg (*)] 81 mg PO DAILY 11/23/17 [Last Taken 1 Week Ago ~01/27/18] Atorvastatin Calcium [Lipitor 40 mg (*)] 40 mg PO DAILY 11/23/17 [Last Taken 3 Days Ago ~01/31/18] FLUoxetine [Prozac 20 MG (*)] 20 mg PO DAILY 11/23/17 [Last Taken 3 Days Ago ~] Gabapentin [Neurontin 100 MG (*)] 100 mg PO TID 11/23/17 [Last Taken 3 Days Ago ~01/31/18] Lisinopril [Zestril 20 mg (*)] 20 mg PO DAILY 11/23/17 [Last Taken 3 Days Ago ~ 01/31/18] Metformin HCl [Metformin 1000 mg] 1,000 mg PO BID 11/23/17 [Last Taken 3 Days Ago ~01/31/18] Naltrexone HCl 50 mg PO DAILY 11/23/17 [Last Taken 3 Days Ago ~01/31/18] Tamsulosin HCl [Flomax 0.4 MG (*)] 0.4 mg PO DAILY 11/23/17 [Last Taken 3 Days Ago ~01/31/18] glipiZIDE [Glipizide] 10 mg PO BID 11/23/17 [Last Taken 3 Days Ago ~01/31/18] - NPO status NPO Since - Liquids (Date): 02/03/18 NPO Since - Liquids (Time): 03:00 NPO Since - Solids (Date): 02/02/18 NPO Since - Solids (Time): 18:30 - Smoking Hx Smoking Status: Never smoked ANE Labs/Vital Signs - Vital Signs Blood Pressure: 118/76 Heart Rate: 72 Respiratory Rate: 16 O2 Sat (%): 95 Height: 170.18 cm Weight: 81.647 kg ANE Physical Exam - Airway Neck exam: FROM Mallampati Score: Class 2 Mouth exam: poor dentition - Pulmonary Pulmonary: no respiratory distress - Cardiovascular Cardiovascular: regular rate and rhythym - ASA Status ASA Status: III ANE Anesthesia Plan Anesthesia Plan: GA w LMA
--- NOTE | 2018-02-03 07:05 | PDHPUP ---
History & Physical Update H&P update statement: This history and physical update is based on an assessment of the patient which was completed after admission or registration (within 24 hours), but prior to the surgery/procedure. H&P update: H&P reviewed & patient examined, no change in patient's condition since H&P completed
[2018-02-03] MEDS ORDERED: BUPIVACAINE 0.25% 30 ML SDV ONE (07:07)
[2018-02-03] MEDS ORDERED: PROPOFOL 200 MG/20 ML VIAL ONE (07:08)
[2018-02-03] MEDS ORDERED: fentaNYL 100 MCG/2 ML INJ ONE (07:08)
[2018-02-03] MEDS ORDERED: LIDOCAINE 2% 5 ML SDV ONE (07:09)
[2018-02-03] MEDS ORDERED: METOCLOPRAMIDE 10 MG/2 ML VIAL ONE (07:36)
[2018-02-03] MEDS ORDERED: ONDANSETRON 4 MG/2 ML VIAL ONE (07:37)
[2018-02-03] MEDS ORDERED: NALOXONE HCL 0.4 MG/ML INJ IVP PRN (07:48)
[2018-02-03] MEDS ORDERED: ONDANSETRON 4 MG/2 ML VIAL IVP PRN ×2 (07:48→08:21)
[2018-02-03] MEDS ORDERED: PROMETHAZINE HCL 25 MG/ML INJ IVP PRN (07:48)
[2018-02-03] MEDS ORDERED: fentaNYL 100 MCG/2 ML INJ IVP PRN (07:48)
--- NOTE | 2018-02-03 08:20 | POSTOPPROG ---
Post Op Note Date of Operation: 02/03/18 Surgeon: Chantal Eric Anesthesiologist: Dr. Mora Anesthesia: GET(General Endotracheal) Pre-op Diagnosis: Osteomyelitis left second toe Post-op Diagnosis: same Procedure: Amputation left second toe and metatarsal head Inf/Abcess present in the surg proc area at time of surgery?: Yes Depth: Deep Incisional (Fascial) EBL: Minimal Specimen(s): left second phalange and metatarsal head for path and micro
--- NOTE | 2018-02-03 08:26 | POSTANESTH ---
Post Anesthetic Evaluation Cardiovascular Status: Normal, Stable Respiratory Status: Normal, Stable Level of Consciousness/Mental Status: Can Participate in Eval Pain Control: Adequate, Prn Tx Ordered Nausea/Vomiting Control: Adequate, Prn Tx Ordered Complications Possibly Related to Anesthesia: None Noted
--- NOTE | 2018-02-03 08:39 | GOP ---
[f rep st] OPERATIVE REPORT DATE OF OPERATION: 02/03/2018 SURGEON: Chantal Eric MD ANESTHESIA: General. ANESTHESIOLOGIST: Dr. Gross. PREOPERATIVE DIAGNOSIS: Osteomyelitis, left 2nd toe. POSTOPERATIVE DIAGNOSIS: Osteomyelitis, left 2nd toe. PROCEDURE PERFORMED: Amputation left 2nd toe and metatarsal head. FINDINGS: no obvious purulence SPECIMENS: Micro and Path EBL: 10 cc INDICATIONS: The patient is a 57-year-old man who had a very small pinpoint hole on the plantar surface of his foot that was suggested for osteomyelitis. He tried antibiotics, but the wound would not heal. Due to months of medical management, he presents for amputation. DESCRIPTION OF PROCEDURE: The patient was brought into the operating room, placed supine on the table, and general anesthesia was administered. His left foot was prepped and draped in the usual sterile fashion. I infiltrated the area with 10 cc of 0.25% Marcaine prior to making incision. I made an incision around the dorsal aspect of the toe and this continued on the plantar surface beyond the level of the wound. I continued my dissection down to the bone. I used a periosteal elevator to lift the soft tissue away from the bone. I transected the proximal phalanx. I took a 2nd sample. I sent this for microbiology. I then took the metatarsal head, inked this proximal, and sent this to Pathology. Hemostasis was achieved in the wound. The deep layer closed with 3-0 Vicryl. The skin was closed with 2-0 nylon and 3-0 nylon. A sterile dressing was applied. He was awakened in the operating room, extubated , transferred to PACU in stable condition. /[id number]/MODL MTDD
[2018-02-03] MEDS: TAMSULOSIN HCL 0.4 MG CAP PO SCH (10:35)
[2018-02-03] MEDS: KETOROLAC 15 MG/1 ML SDV IVP SCH ×2 (10:35→17:32)
[2018-02-03] MEDS: ENOXAPARIN 40 MG/0.4 ML SYR SC SCH (10:35)
[2018-02-03] MEDS: ACETAMINOPHEN 500 MG TAB PO SCH ×2 (10:35→17:32)
[2018-02-03] MEDS ORDERED: metFORMIN SR 500 MG TAB PO SCH (17:00)
[2018-02-04] MEDS: KETOROLAC 15 MG/1 ML SDV IVP SCH ×3 (00:35→11:56)
[2018-02-04] MEDS: ACETAMINOPHEN 500 MG TAB PO SCH ×2 (00:36→08:56)
[2018-02-04] MEDS: TAMSULOSIN HCL 0.4 MG CAP PO SCH (08:57)
[2018-02-04] MEDS: ENOXAPARIN 40 MG/0.4 ML SYR SC SCH (08:59)
[2018-02-04] MEDS ORDERED: NALTREXONE HCL 50 MG TAB PO SCH (09:00)
[2018-02-04] MEDS ORDERED: glipiZIDE 5 MG TAB PO SCH (09:00)
[2018-02-04] MEDS ORDERED: ATORVASTATIN CALCIUM 40 MG TAB PO SCH (09:00)
[2018-02-04] MEDS ORDERED: FLUoxetine 20 MG CAP PO SCH (09:00)
[2018-02-04] MEDS ORDERED: ASPIRIN EC 81 MG TAB PO SCH (09:00)
[2018-02-04] MEDS ORDERED: GABAPENTIN 100 MG CAP PO SCH (09:00)
[2018-02-04] MEDS ORDERED: LISINOPRIL 20 MG TAB PO SCH (09:00)
[2018-02-04 12:03] VITALS: BP 113/69; PULSE 74; RESP 12; TEMP 97.9; O2SAT 93
--- NOTE | 2018-02-04 13:13 | SOAPPROG ---
SOAP Progress Note Assessment/Plan: Assessment/Plan: 57yo M POD#1 s/p L 2nd toe amputation for chronic wound/ osteomyelitis Path/culture pending Pain controlled Change dressing PRN Walking boot when ambulating Dispo: may DC to half-way. Will wait to hear from CM prior to putting in DC order. Seen with Dr. Eric S: feeling well. no complaints. answered all questions to patient's satisfaction O: laying in bed, comfortable, NAD No increased WOB Dressing saturated. Removed. Incision macerated but CDI. Dressing replaced. Walking boot applied Objective: Vital Signs Temp Pulse Resp BP Pulse Ox 36.6 C 74 12 113/69 93 02/04/18 12:00 02/04/18 12:00 02/04/18 12:00 02/04/18 12:00 02/04/18 12:00 Microbiology 02/03/18 07:57 Gram Stain - Final Toe - Bone 02/03/18 02/04/18 02/05/18 05:59 05:59 05:59 Intake Total 7130 Output Total 253 Balance 2217 ICD10 Worksheet Patient Problems: Problems Problem Status Onset Gastroenteritis Acute
--- NOTE | 2018-02-04 15:12 | ASMTCMCOM ---
CM Note CM Note Notes: Spoke w/ surgical PA, would like to dc today. She is ok with pt going to assisted bed. CM spoke w/pt, he was hoping for respite bed, that his CM at [facility] advised this. CM called Va at [facility] but did not get a response, I then called Kavitha at [facility] who stated she did not have the ability to reserve [facility] respite. CONOR spoke with pt he is ok with going to assisted, he does not need to change dressing until he sees Dr Eric on Wed at 11:15. DC Plan: [facility] Date Signed: 02/04/2018 03:11 PM Electronically Signed By:Evelia Parisi RN
--- NOTE | 2018-02-04 18:27 | GDS ---
[f rep st] DISCHARGE SUMMARY ADMITTING DIAGNOSIS: Chronic left 2nd toe wound. SECONDARY DIAGNOSES: Type 2 diabetes with neuropathy, history of colon cancer. REASON FOR ADMISSION: Fareed Wagner is a 57-year-old man with a nonhealing diabetic foot ulcer of his left 2nd toe. He had findings of osteomyelitis. He was admitted at this time for surgical intervent ion pain control, and observation. HOSPITAL COURSE: He was taken to the operating room on 02/03/[address] Chantal Eric for an amputati on of the left 2nd toe and distal metatarsal. Specimens were sent for pathology and for culture. He was placed in an offloading boot. On postoperative day #1, he was ambulating independently, tolerat ing a regular diet. His pain was well controlled, and he was ready for discharge. His postop course was unremarkable. CONDITION: He is being discharged in stable condition to a reserved bed at the [facility]. He is ambulating independently and tolerating regular diet. Pain is well controlled. DISCHARGE MEDICATIONS: He was sent home with instructions to resume home medicines. Please see EMR for further detail. DISCHARGE INSTRUCTIONS AND FOLLOWUP: The patient was sent home with supplies to change dressings as needed. Follow up in [address] Eric. Call to make an appointment. Call with worsening sympt oms, questions, or concerns. He will wear the offloading boot when ambulatory. /[id number]/MODL
== END 2018-02-04 15:25 | disposition home or self-care (01) ==
LOC: FSGY 05:17 → F3E 08:20
PROVIDERS: ADMIT Surgery; ATTEND Surgery
PROC: 0Y6S0Z0 Detachment at Left 2nd Toe, Complete, Open Approach (ICD-10-PCS; principal; 2018-02-03 07:15)
DX: M86.672 Other chronic osteomyelitis, left ankle and foot (principal); L97.521 Non-pressure chronic ulcer of other part of left foot limited to breakdown of skin; E11.621 Type 2 diabetes mellitus with foot ulcer; E11.610 Type 2 diabetes mellitus with diabetic neuropathic arthropathy; Z85.038 Personal history of other malignant neoplasm of large intestine; Z90.49 Acquired absence of other specified parts of digestive tract; Z59.0 Homelessness
CPT/HCPCS: 97116-GP; 97161-GP; J0690; J1650; J1885; J2250; J2405; J2704; J2765; J3010

== ENCOUNTER 2018-02-18 10:43 | Inpatient (IN) | payer MEDICAID ==
[2018-02-18 12:29] LABS: PLATELET COUNT 223 10^3/uL (150-400)
[2018-02-18] MEDS ORDERED: ONDANSETRON DISINTEGRATING 4 MG TAB PO PRN (12:34)
[2018-02-18] MEDS ORDERED: ACETAMINOPHEN 325 MG TAB PO PRN (12:34)
[2018-02-18] MEDS ORDERED: ONDANSETRON 4 MG/2 ML VIAL IVP PRN (12:34)
[2018-02-18] MEDS ORDERED: diphenhydrAMINE 25 MG CAP PO PRN (12:34)
[2018-02-18] MEDS ORDERED: HYDROCODONE/APAP 5/325 TAB PO PRN (12:34)
[2018-02-18] MEDS ORDERED: D50W 25 GM/50 ML SYR IVP PRN (13:47)
--- NOTE | 2018-02-18 13:51 | PDGENHP ---
History and Physical - Chief Complaint Left foot infection - History of Present Illness This is a 57 yo male who is being admitted directly from Dr. Garay office for left foot cellulitis. He has a hx of DMII with Neuropathy and had left 2nd toe amputation secondary to diabetic ulcer and OM on 02/03. He was continued on Augmentin 875mg BID but has had increased redness and swelling to the left foot. He was seen by Dr. Garay P.A today and sent for admission. He denies CP or SOB. He denies leg swelling. He denies cough. Denies N/V/D. He reports that he had red streaking up his leg. I do not see any. 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), no illicits, homeless FmHx: negative for DM data/labs: most recent labs and data reviewed from prior admission History Information - Allergies/Home Medication List Allergies/Adverse Reactions: No Known Allergies Allergy (Verified 11/23/17 10:35) Home Medications: Atorvastatin Calcium [Lipitor 40 mg (*)] 40 mg PO DAILY06 11/23/17 [Last Taken 02/18/18] FLUoxetine [Prozac 20 MG (*)] 20 mg PO DAILY06 11/23/17 [Last Taken 02/18/18] Gabapentin [Neurontin 100 MG (*)] 100 mg PO DAILY06 11/23/17 [Last Taken ] Lisinopril [Zestril 20 mg (*)] 20 mg PO DAILY06 11/23/17 [Last Taken 02/18/18] Naltrexone HCl 50 mg INJ Q30D 11/23/17 [Last Taken 2 Weeks Ago ~02/04/18] Tamsulosin HCl [Flomax 0.4 MG (*)] 0.4 mg PO DAILY06 11/23/17 [Last Taken ] glipiZIDE [Glipizide] 2.5 mg PO DAILY06 11/23/17 [Last Taken 02/18/18] metFORMIN HCL [Metformin HCl ER] 500 mg PO DAILY06 02/03/18 [Last Taken 02/18/18 ] Linagliptin [Tradjenta] 5 mg PO DAILY06 02/17/18 [Last Taken 02/18/18] Amoxicillin/Clavulanate Pot [Augmentin 875 MG TAB (*)] 875 mg PO BID 02/18/18 [ Last Taken 02/18/18] I have personally reviewed and updated: medical history, social history - Social History Smoking Status: Never smoked Review of Systems Review of Systems: ROS: 10pt was reviewed & negative except for what was stated in HPI & below Physical Exam Physical Exam: Temp Pulse Resp BP Pulse Ox 37.0 C 86 20 118/77 93 02/18/18 11:23 02/18/18 11:23 02/18/18 11:23 02/18/18 11:23 02/18/18 11:23 Constitutional: no apparent distress, appears nourished Eyes: PERRL, EOMI Ears, Nose, Mouth, Throat: moist mucous membranes, hearing normal Cardiovascular: regular rate and rhythym, No JVD, No edema Respiratory: no respiratory distress, no rales or rhonchi, clear to auscultation Gastrointestinal: normoactive bowel sounds, soft, non-tender abdomen Genitourinary: no bladder fullness Skin: warm, other (Left foot: amputation of left second toe. distal erythema and swelling. No obvious discharge) Neurologic: AAOx3 Psychiatric: interacting appropriately, not anxious, not encephalopathic Lymph, Heme, Immunologic: No petechiae Lab Data & Imaging Review 02/18/18 12:24 02/18/18 12:24 WBC 12.21 10^3/uL (3.80-9.50) H 02/18/18 12:24 RBC 4.22 10^6/uL (4.40-6.38) L 02/18/18 12:24 Hgb 12.7 g/dL (13.7-17.5) L 02/18/18 12:24 Hct 36.6 % (40.0-51.0) L 02/18/18 12:24 MCV 86.7 fL (81.5-99.8) 02/18/18 12:24 MCH 30.1 pg (27.9-34.1) 02/18/18 12:24 MCHC 34.7 g/dL (32.4-36.7) 02/18/18 12:24 RDW 12.1 % (11.5-15.2) 02/18/18 12:24 Plt Count 223 10^3/uL (150-400) 02/18/18 12:24 MPV 8.6 fL (8.7-11.7) L 02/18/18 12:24 Neut % (Auto) 80.1 % (39.3-74.2) H 02/18/18 12:24 Lymph % (Auto) 11.5 % (15.0-45.0) L 02/18/18 12:24 [place] % (Auto) 4.7 % (4.5-13.0) 02/18/18 12:24 Eos % (Auto) 2.1 % (0.6-7.6) 02/18/18 12:24 Baso % (Auto) 0.3 % (0.3-1.7) 02/18/18 12:24 Nucleat RBC Rel Count 0.0 % (0.0-0.2) 02/18/18 12:24 Absolute Neuts (auto) 9.77 10^3/uL (1.70-6.50) H 02/18/18 12:24 Absolute Lymphs (auto) 1.41 10^3/uL (1.00-3.00) 02/18/18 12:24 Absolute Monos (auto) 0.57 10^3/uL (0.30-0.80) 02/18/18 12:24 Absolute Eos (auto) 0.26 10^3/uL (0.03-0.40) 02/18/18 12:24 Absolute Basos (auto) 0.04 10^3/uL (0.02-0.10) 02/18/18 12:24 Absolute Nucleated RBC 0.00 10^3/uL (0-0.01) 02/18/18 12:24 Immature Gran % 1.3 % (0.0-1.1) H 02/18/18 12:24 Immature Gran # 0.16 10^3/uL (0.00-0.10) H 02/18/18 12:24 Sodium 139 mEq/L (135-145) 02/18/18 12:24 Potassium 3.8 mEq/L (3.5-5.2) 02/18/18 12:24 Chloride 105 mEq/L (97-110) 02/18/18 12:24 Carbon Dioxide 22 mEq/l (22-31) 02/18/18 12:24 Anion Gap 12 mEq/L (8-16) 02/18/18 12:24 BUN 18 mg/dL (7-23) 02/18/18 12:24 Creatinine 0.7 mg/dL (0.7-1.3) 02/18/18 12:24 Estimated GFR > 60 02/18/18 12:24 Glucose 83 mg/dL (70-100) 02/18/18 12:24 Calcium 8.8 mg/dL (8.5-10.4) 02/18/18 12:24 Total Bilirubin 0.9 mg/dL (0.1-1.4) 02/18/18 12:24 AST 21 IU/L (17-59) 02/18/18 12:24 ALT 46 IU/L (21-72) 02/18/18 12:24 Alkaline Phosphatase 95 IU/L (38-126) 02/18/18 12:24 C-Reactive Protein 53.9 mg/L (<10.0) H 02/18/18 12:24 Total Protein 7.2 g/dL (6.3-8.2) 02/18/18 12:24 Albumin 3.6 g/dL (3.5-5.0) 02/18/18 12:24 Assessment & Plan Assessment: 57 yo male with recent Left 2nd toe amputation due to OM with new e/o of Left foot cellulitis #Left Foot cellulitis #Left Foot diabetic wound #DMII, non insulin dependent #HTN, BP at target currently #HLD #Neuropathy Plan: Start Vancomycin Will obtain labs prior to starting abx per above He does not show any signs of sepsis, VSS no Hypotension or tachycardia I do not see any red streaks going up his left leg as he reports cont home meds start Insulin sliding scale, check A1C Check XR to eval cell, r/o OM. check inflammatory markers Surgical mgmt per surgery SCD for DVT proph
[2018-02-18] MEDS ORDERED: NS 1,000 ML IV SCH (14:00)
[2018-02-18] MEDS: VANCOMYCIN 1.25 GM in NS 250 ML IV SCH (14:15)
--- NOTE | 2018-02-18 16:24 | WOCRNPDOC ---
WOCRN Advanced Assessment Note - Skin Integrity Problem, Advanced Assess Left 2nd toe amputation site Dressing Type: Open to Air Exudate Amount: Minimal Exudate Color: Reddish/Yellow Exudate Characteristic(s): Sanguinopurulent Integumentary Issue Intervention: Dressing Applied [place] Wound Tissue: Erythema (marked), Swollen [place] Wound Swelling: Moderate Wound Bed Color: Red Wound Bed Constitution: Granulation Tissue (50%), [place] - Non Granular Tissue (50%), Tunneling (2cm at 6 o'clock) Site Odor: None Site Measurement - Head-to-Toe Length X Width X Depth (cm): 1.6cmx0.8cmx0.2cm ( 2cm tunnel at 6 o'clock) Skin Integrity Problem Comment: Wound between 1st and 3rd toes, s/p amputation of 2nd toe and subsequent dehiscence. Wound open to air during assessment, dried bloody exudate in wound bed. Using blunt end of cotton-tipped applicator I was able to break through dried exudate distally to expose a 2cm tunnel at 6 o 'clock, from which purulent exudate was expressed. Depth concerning for osteomyelitis, however I did not feel bone when probed. Tunnel is narrow, discrete. Remaining wound bed is mix of granulating and non-granulating tissues. Packed tunnel w/ Algidex Ag 1/4 inch strip, and covered remaining wound bed w/ Hydrofera Blue, followed by Allevyn dressing.
--- NOTE | 2018-02-18 17:04 | SOAPPROG ---
SOAP Progress Note Assessment/Plan: Assessment/Plan: Official consult note to follow 57yo M s/p L 2nd toe amputation by Dr. Eric on 02/03/18. Now admitted with worsening cellulitis, pain and swelling of LLE IV vancomycin Pain controlled Xray to r/o osteo Hope to avoid TMA. Consider imaging (art studies vs CTA) if needs surgery Appreciate hospitalist management of comorbidities Wound care consult for dressings To be additionally seen by Dr. Adair S: pain controlled. no fevers. O: examined earlier this morning in our surgery office WDWN man, NAD, nontoxic No increased WOB 1+ peripheral edema LLE. 2+ DP and PT pulses LLE Erythema extends to mid forefoot. No streaking. Area of min erythema medial left thigh Tender to palpation Wound with slough in base, tunnel plantar aspect decreased, no palpable bone Objective: Vital Signs Temp Pulse Resp BP Pulse Ox 36.7 C 81 20 104/69 95 02/18/18 15:18 02/18/18 15:18 02/18/18 15:18 02/18/18 15:18 02/18/18 15:18 Laboratory Results 02/18/18 12:24 02/18/18 12:24 ICD10 Worksheet Patient Problems: Problems Problem Status Onset Gastroenteritis Acute
[2018-02-18] MEDS: INSULIN LISPRO 100 UNIT/ML SC SCH (18:20)
--- NOTE | 2018-02-18 18:43 | GCON ---
[f rep st] CONSULTATION DATE OF CONSULTATION: 02/18/2018 CHIEF COMPLAINT: Diabetic foot infection. HISTORY OF PRESENT ILLNESS: Fareed Wagner is a 57-year-old homeless man who originally presented with a wound on the plantar aspect of his left foot. He underwent amputation of the left 2nd toe on 02/03/[address] Chantal Eric. Pathology showed negative bony margin for osteomyelitis. Culture showed 2+ Enterococcus faecalis and rare MRSA. He completed a course of antibiotics. Last week, he developed a wound dehiscence of the amputation site as well as slight surrounding erythema. He was started back on Augmentin. Today, however , on exam, he is having significantly more pain, swelling, and redness of the left foot. In addition, he notes some redness of the inner left thigh. He denies fevers or chills, but is complaining of fatigue and malaise. PAST MEDICAL HISTORY: Type 2 diabetes and history of colon cancer. PAST SURGICAL HISTORY: Left 2nd toe amputation and colon resection. SOCIAL HISTORY: He has a history of heavy alcohol use. He does not currently use tobacco. He is homeless. He participates in intensive therapy weekly. ALLERGIES: No known drug allergies. FAMILY HISTORY: Significant for diabetes. REVIEW OF SYSTEMS: 10-point review of systems negative aside from HPI. PHYSICAL EXAMINATION: GENERAL: Well-developed, well-nourished man in no acute distress, accompanied by girlfriend. HEENT: Normocephalic, atraumatic. No hearing deficits. Pupils equal and round. No scleral icterus. Mucous membranes moist. Poor dentition. LUNGS: No increased work of breathing. CARDIOVASCULAR: 1+ peripheral edema left lower extremity. No edema right lower extremity. NEUROLOGIC: Decreased sensation of the bilateral lower extremities, however significant pain on palpation of the left foot today. SKIN : The left 2nd toe amputation site with wound dehiscence. There is a moderate amount of slough in the base of the wound. I am unable to probe. There is no tunneling or undermining. He has erythema of the left lower extremity extending to the mid forefoot, which is a vibrant red. He additionally has an area of erythema of the middle inner left thigh without streaking continuously. PSYCH: Mood and affect normal. IMPRESSION AND PLAN: A 57-year-old man, status post left 2nd toe amputation with worsening cellulitis. He will be admitted for IV antibiotics with vancomycin and possible surgical revision or bony margin. He will get additional imaging. I appreciate hospitalist management of his type 2 diabetes. Wound care consult for dressing changes. He will elevate the lower extremity. He will wear an immobilizer boot when ambulating. The patient will additionally be evaluated by Dr. Cedric Adair. /[id number]/MODL MTDD
[2018-02-19] MEDS: VANCOMYCIN 1.25 GM in NS 250 ML IV SCH ×2 (01:49→14:31)
[2018-02-19 05:08] LABS: PLATELET COUNT 243 10^3/uL (150-400)
[2018-02-19] MEDS: glipiZIDE 5 MG TAB PO SCH (05:33)
[2018-02-19] MEDS: FLUoxetine 20 MG CAP PO SCH (05:33)
[2018-02-19] MEDS: GABAPENTIN 100 MG CAP PO SCH (05:33)
[2018-02-19] MEDS: TAMSULOSIN HCL 0.4 MG CAP PO SCH (05:33)
[2018-02-19] MEDS: ATORVASTATIN CALCIUM 40 MG TAB PO SCH (05:33)
[2018-02-19] MEDS ORDERED: LISINOPRIL 20 MG TAB PO SCH (06:00)
[2018-02-19] MEDS: INSULIN LISPRO 100 UNIT/ML SC SCH ×3 (08:17→19:00)
--- NOTE | 2018-02-19 09:23 | PDANEPAE ---
ANE Past Medical History - Cardiovascular History Hx Hypertension: Yes Hx Arrhythmias: No Hx Chest Pain: No Hx Coronary Artery / Peripheral Vascular Disease: Yes Hx CHF / Valvular Disease: No Hx Palpitations: No - Pulmonary History Hx COPD: No Hx Asthma/Reactive Airway Disease: No Hx Recent Upper Respiratory Infection: No Hx Oxygen in Use at Home: No Hx Sleep Apnea: No Sleep Apnea Screening Result - Last Documented: Positive - Neurologic History Hx Cerebrovascular Accident: No Hx Seizures: No Hx Dementia: No - Endocrine History Hx Diabetes: Yes Endocrine History Comment: NIDDM - Renal History Hx Renal Disorders: Yes Renal History Comment: LT KIDNEY FUNCTIONS AT 50% - Liver History Hx Hepatic Disorders: No - Neurological & Psychiatric Hx Hx Neurological and Psychiatric Disorders: No - Cancer History Hx Cancer: Yes Cancer History Comment: COLON - Congenital Disorder History Hx Congenital Disorders: No - GI History Hx Gastrointestinal Disorders: Yes Gastrointestinal History Comment: COLON POLYPS - Other Health History Other Health History: NON HEALING DIABETIC FOOT ULCER. MANAGED BY WOUND CLINIC - Chronic Pain History Chronic Pain: Yes (LT FOOT) - Surgical History Prior Surgeries: LT FOOT 2ND TOE AMPUTATION 02/03/2018. COLECTOMY 2016. COLONOSCOPIES ANE Review of Systems Review of Systems: ANE Patient History - Allergies Allergies/Adverse Reactions: No Known Allergies Allergy (Verified 11/23/17 10:35) - Home Medications Home Medications: Atorvastatin Calcium [Lipitor 40 mg (*)] 40 mg PO DAILY06 11/23/17 [Last Taken 02/18/18] FLUoxetine [Prozac 20 MG (*)] 20 mg PO DAILY06 11/23/17 [Last Taken 02/18/18] Gabapentin [Neurontin 100 MG (*)] 100 mg PO DAILY06 11/23/17 [Last Taken ] Lisinopril [Zestril 20 mg (*)] 20 mg PO DAILY06 11/23/17 [Last Taken 02/18/18] Naltrexone HCl 50 mg INJ Q30D 11/23/17 [Last Taken 2 Weeks Ago ~02/04/18] Tamsulosin HCl [Flomax 0.4 MG (*)] 0.4 mg PO DAILY06 11/23/17 [Last Taken ] glipiZIDE [Glipizide] 2.5 mg PO DAILY06 11/23/17 [Last Taken 02/18/18] metFORMIN HCL [Metformin HCl ER] 500 mg PO DAILY06 02/03/18 [Last Taken 02/18/18 ] Linagliptin [Tradjenta] 5 mg PO DAILY06 02/17/18 [Last Taken 02/18/18] Amoxicillin/Clavulanate Pot [Augmentin 875 MG TAB (*)] 875 mg PO BID 02/18/18 [ Last Taken 02/18/18] - NPO status NPO Since - Liquids (Date): 02/19/18 NPO Since - Liquids (Time): 00:01 NPO Since - Solids (Date): 02/19/18 NPO Since - Solids (Time): 00:01 - Smoking Hx Smoking Status: Never smoked ANE Labs/Vital Signs - Labs Result Diagrams: 02/19/18 04:35 02/19/18 04:35 - Vital Signs Blood Pressure: 112/73 Heart Rate: 66 Respiratory Rate: 16 O2 Sat (%): 94 Height: 170.18 cm Weight: 80.739 kg ANE Physical Exam - Airway Mallampati Score: Class 2 Mouth exam: poor dentition - ASA Status ASA Status: III ANE Anesthesia Plan Anesthesia Plan: GA w LMA
[2018-02-19] MEDS ORDERED: BUPIVACAINE 0.5% 30 ML SDV ONE (09:24)
[2018-02-19] MEDS ORDERED: PROPOFOL 200 MG/20 ML VIAL ONE (09:27)
[2018-02-19] MEDS ORDERED: fentaNYL 100 MCG/2 ML INJ ONE ×2 (09:27→09:55)
[2018-02-19] MEDS ORDERED: MIDAZOLAM 2 MG/2 ML VIAL ONE (09:27)
[2018-02-19] MEDS ORDERED: METOCLOPRAMIDE 10 MG/2 ML VIAL ONE (09:29)
[2018-02-19] MEDS ORDERED: ONDANSETRON 4 MG/2 ML VIAL ONE (09:29)
[2018-02-19] MEDS ORDERED: LIDOCAINE 2% JELLY 5 ML TUBE ONE (09:30)
--- NOTE | 2018-02-19 10:18 | POSTOPPROG ---
Post Op Note Date of Operation: 02/20/18 Surgeon: Alma Stevenson Anesthesiologist: Toy Meek Anesthesia: GET(General Endotracheal) Pre-op Diagnosis: left 2nd toe osteomyelitis, hx partial 2nd toe amp Post-op Diagnosis: same Procedure: left 2nd toe ray amputation with wound vac placement Inf/Abcess present in the surg proc area at time of surgery?: Yes Depth: Deep Incisional (Fascial) EBL: Minimal Complications: none Drains: Wound Vac
--- NOTE | 2018-02-19 10:38 | ASMTCMCOM ---
CM Note CM Note Notes: Pt is a 57 yr old homeless man who was recently discharged to the detention after a left toe amputation ( he had a walking boot) and has been diligent about his f/u appts with Dr Eric. Of note, his Evelia, lives in the [facility]. He has a hx of etoh but has been sober for several months, he does not currently use tobacco per chart. He also is current with [facility] and has a egg caser named Va, pt has number. CM called her at last admission but she never called back. Pt was taken to surgery today, as of now no therapies are ordered, has Medicaid. DC Plan: TBD Date Signed: 02/19/2018 10:37 AM Electronically Signed By:Evelia Parisi RN
[2018-02-19] MEDS ORDERED: NALOXONE HCL 0.4 MG/ML INJ IVP PRN (10:42)
[2018-02-19] MEDS ORDERED: PHENYLEPHRINE HCL 100 MCG/ML SYR IVP PRN (10:42)
[2018-02-19] MEDS ORDERED: PROMETHAZINE HCL 25 MG/ML INJ IVP PRN (10:42)
[2018-02-19] MEDS ORDERED: LR 500 ML IV PRN (10:42)
[2018-02-19] MEDS ORDERED: fentaNYL 100 MCG/2 ML INJ IVP PRN (10:42)
[2018-02-19] MEDS ORDERED: MEPERIDINE 25 MG/ML SYR IVP PRN (10:42)
--- NOTE | 2018-02-19 10:44 | POSTANESTH ---
Post Anesthetic Evaluation Cardiovascular Status: Similar to Pre-Op Cond Respiratory Status: Normal, Stable Level of Consciousness/Mental Status: Can Participate in Eval Pain Control: Adequate, Prn Tx Ordered Nausea/Vomiting Control: Adequate, Prn Tx Ordered Complications Possibly Related to Anesthesia: None Noted
--- NOTE | 2018-02-19 12:23 | HOSPPROG ---
Hospitalist Progress Note Assessment/Plan: 57 yo male with recent Left 2nd toe amputation due to OM with new e/o of Left foot cellulitis #Left Foot cellulitis #Left Foot diabetic wound/OM #s/p amputation on 02/19 #DMII, non insulin dependent #HTN, now with low BP #HLD #Neuropathy Plan: Cont Vancomycin for now Hold Lisinopril cont ISS, and op dm meds, glucose at goal post op care per surgery SCD's Subjective: had surgery today. pain is well controlled. BP is borderline low. no cp or sob. no n/v Objective: Vital Signs Temp Pulse Resp BP Pulse Ox 36.7 C 68 16 100/69 93 02/19/18 11:28 02/19/18 11:28 02/19/18 11:28 02/19/18 11:28 02/19/18 11:28 Microbiology 02/19/18 10:14 Gram Stain - Final Foot - Bone Laboratory Results 02/19/18 04:35 02/19/18 04:35 02/18/18 02/19/18 02/20/18 05:59 05:59 05:59 Intake Total 1356 950 Output Total 10 Balance 1356 940 - Physical Exam Constitutional: no apparent distress Eyes: PERRL, EOMI Ears, Nose, Mouth, Throat: moist mucous membranes, hearing normal Cardiovascular: regular rate and rhythym, no murmur, rub, or gallop Respiratory: no respiratory distress, no rales or rhonchi Gastrointestinal: normoactive bowel sounds, soft, non-tender abdomen Skin: warm, other (left foot: wound vac in place) Neurologic: AAOx3 Psychiatric: interacting appropriately, not anxious, not encephalopathic Lymph, Heme, Immunologic: No petechiae ICD10 Worksheet Patient Problems: Problems Problem Status Onset Gastroenteritis Acute
--- NOTE | 2018-02-19 13:54 | PDMN ---
Medical Necessity Medical necessity: C/M review: est. > 2 MN LOS for eval and TX of acute and persistent left foot cellulitis, left foot diabetic wound / osteomyelitis, hypotension, requiring General surgery consult and 02/19/2018 surgical intervention - left second toe ray amputation, ongoing IV Vancomycin, monitoring blood glucose, insulin sliding scale and outpatient diabetic meds, hold lisinopril, postop left foot care per surgery, SCD's, comorbid type 2 diabetes non insulin dependent with neuropathy, hypertension, hyperlipidemia, neuropathy per 02/19/2018 Hospitalist progress note.
--- NOTE | 2018-02-19 14:10 | GOP ---
[f rep st] OPERATIVE REPORT DATE OF OPERATION: 02/19/2018 SURGEON: Cedric Adair MD ANESTHESIOLOGIST: Dr. Toy Meek. PREOPERATIVE DIAGNOSIS: Osteomyelitis of the left 2nd metatarsal. POSTOPERATIVE DIAGNOSIS: Osteomyelitis of the left 2nd metatarsal. PROCEDURE PERFORMED: Left 2nd metatarsal ray amputation. FINDINGS: Patient was found to have an eroded distal metatarsal head suspicious for osteomyelitis an d a poorly healing previous wound with a fair amount of necrotic tissue, but no azael pus. ESTIMATED BLOOD LOSS: Negligible. DESCRIPTION OF PROCEDURE: Patient taken to the operating room where he received satisfactory general endotracheal anesthesia by Dr. Meek. Placed in supine position, prepped and draped in the usual s terile fashion. A longitudinal incision was made over the 2nd metatarsal head partially through prev ious old incision where the patient had a distal 2nd toe amputation. Dissection extended down to the metatarsal head. The metatarsal shaft was then freed up with the osteotome. Approximately 1 inch o f the distal 2nd metatarsal was removed, being divided with the power saw back to the level with good involved bone. A specimen was sent for both culture and pathology. The wound was then thoroughly d ebrided. Hemostasis was assured. The wound was copiously irrigated then a wound VAC was placed in t he space. He tolerated the procedure well. COMPLICATIONS: No complications. DISPOSITION: Taken to the recovery room in good condition. /[id number]/MODL
[2018-02-20] MEDS: VANCOMYCIN 1.25 GM in NS 250 ML IV SCH ×2 (02:18→14:18)
[2018-02-20 04:57] LABS: PLATELET COUNT 240 10^3/uL (150-400)
[2018-02-20] MEDS: TAMSULOSIN HCL 0.4 MG CAP PO SCH (06:09)
[2018-02-20] MEDS: GABAPENTIN 100 MG CAP PO SCH (06:09)
[2018-02-20] MEDS: glipiZIDE 5 MG TAB PO SCH (06:09)
[2018-02-20] MEDS: ATORVASTATIN CALCIUM 40 MG TAB PO SCH (06:09)
[2018-02-20] MEDS: FLUoxetine 20 MG CAP PO SCH (06:10)
[2018-02-20] MEDS: INSULIN LISPRO 100 UNIT/ML SC SCH ×3 (08:34→18:41)
--- NOTE | 2018-02-20 12:20 | ASMTCMCOM ---
CM Note CM Note Notes: Met with patient who is in bed with a wound vac on his foot. He is homeless, He lives apart from his who has housing. He is interested in applying for LT medicaid benefits and possibly going to [facility] for recovery. [id number] filled out and faxed with H&P, meds. Referrals placed via allscripts. PASSR completed. CM to follow. Date Signed: 02/20/2018 12:19 PM Electronically Signed By:Rachana Rooney RN
--- NOTE | 2018-02-20 12:48 | HOSPPROG ---
Hospitalist Progress Note Assessment/Plan: 57 yo male with recent Left 2nd toe amputation due to MRSA OM with persistent Left toe OM and left foot cellulitis #Left Foot cellulitis #Left Foot diabetic wound/OM -cultures from 02/03 show MRSA. Postoperatively he was treated with Augmentin -cultures 02/19 shows Staph, likely MRSA -Cont Vancomycin. -ID will see tomorrow -He will likely need 6 weeks of abx pending margins #s/p left 2nd metatarsal ray amputation on 02/19 #DMII, non insulin dependent #HTN with low to borderline BP #HLD #Neuropathy #Homelessness Plan: Vancomycin ID to see tomorrow (I have discussed the case with them) Hold Lisinopril for now cont ISS, and outpatient dm meds, glucose at goal post op care per surgery SCD's Subjective: no o/n events. afebrile. BP is still soft. no cp or sob. no n/v Objective: Vital Signs Temp Pulse Resp BP Pulse Ox 36.6 C 90 16 118/72 95 02/20/18 11:38 02/20/18 11:38 02/20/18 11:38 02/20/18 11:38 02/20/18 11:38 Microbiology 02/19/18 10:14 Gram Stain - Final Foot - Bone Laboratory Results 02/20/18 04:40 02/20/18 04:40 02/19/18 02/20/18 02/21/18 05:59 05:59 05:59 Intake Total 1356 950 Output Total 10 Balance 1356 940 - Physical Exam Constitutional: no apparent distress Eyes: PERRL, EOMI Ears, Nose, Mouth, Throat: moist mucous membranes, hearing normal Cardiovascular: regular rate and rhythym, No edema Respiratory: no respiratory distress, reduced air movement Gastrointestinal: normoactive bowel sounds, soft, non-tender abdomen Skin: warm, other (left foot with wound vac in place, left toe amputation) Neurologic: AAOx3 Psychiatric: interacting appropriately, not anxious, not encephalopathic Lymph, Heme, Immunologic: No petechiae ICD10 Worksheet Patient Problems: Problems Problem Status Onset Gastroenteritis Acute
--- NOTE | 2018-02-20 13:01 | SOAPPROG ---
SOAP Progress Note Assessment/Plan: Assessment/Plan: 57 Y diabetic homeless male s/p completion L 2nd toe amputation for osteomyelitis. POD#1. Cultures with staph aureus. Patient now has a wound vac in place. Discussed with wound care and will coordinate bedside vac change for Wednesday. Placement will be an issue for patient. Uncertain if he will need vac on discharge--will decide pending healing. He has been residing at the homeless half-way but needs to leave during the day and so he has been walking on his foot. This potentially could have caused his poor healing and infection. Difficult situation. Vac is to good suction and he has a palpable PT pulse (DP pulse blocked by vac bridge). 02/20/18 12:58 Objective: Vital Signs Temp Pulse Resp BP Pulse Ox 36.6 C 90 16 118/72 95 02/20/18 11:38 02/20/18 11:38 02/20/18 11:38 02/20/18 11:38 02/20/18 11:38 Microbiology 02/19/18 10:14 Gram Stain - Final Foot - Bone Laboratory Results 02/20/18 04:40 02/20/18 04:40 02/19/18 02/20/18 02/21/18 05:59 05:59 05:59 Intake Total 1356 950 Output Total 10 Balance 1356 940 ICD10 Worksheet Patient Problems: Problems Problem Status Onset Gastroenteritis Acute
--- NOTE | 2018-02-20 13:29 | PDGENHP ---
History & Physical Chief Complaint: FOOT CELLULITIS History of Present Illness: HOMELESS MALE WITH RECENT LEFT 2CD TOE AMP PRESENTS WITH ASCENDING CELLULITIS. FOOT XRAY SHOWS HIS 2CD METATARSAL INTACT WITH OSTEOMYELITIS. WILL NEED A RAY AMPUTATION AND DRAINAGE Pertinent Past, Social, Family History: PMH: DM, HTN,NEUROPATHY. LEFT 2CD TOE AMP. FAM HX NONCONTRIB. NKA. MEDS NEUROTIN, AMOXICILLIN, METFORMIN, TRADGLIPIN. ROS - 10 PT REVIEW, CHEWS TOB Relevant Physical Exam: GEN 57 MALE IN NO ACUTE DISTRESS. HEENT NONICTERIC, NO ADENOPATHY. CHEST CLEAR. COR RR. ABD SOFT, NONTENDER. EXTREM OPEN WOUND OVER 2CD TOE AMP SITE WITH CELLULITIS OVER THE FOOT, FULL PULSES. NEURO SYMMETRIC WITH PERIPHERAL NEUROPATHY Cardiorespiratory Assessment: WOUND INFECTION AND OSTEO LEFT 2CD METATARSAL. PLAN RAY AMPUTAION LEFT 2CD TOE
[2018-02-21] MEDS: VANCOMYCIN 1.25 GM in NS 250 ML IV SCH ×2 (02:32→15:13)
[2018-02-21] MEDS: glipiZIDE 5 MG TAB PO SCH (06:15)
[2018-02-21] MEDS: TAMSULOSIN HCL 0.4 MG CAP PO SCH (06:15)
[2018-02-21] MEDS: ATORVASTATIN CALCIUM 40 MG TAB PO SCH (06:15)
[2018-02-21] MEDS: FLUoxetine 20 MG CAP PO SCH (06:15)
[2018-02-21] MEDS: GABAPENTIN 100 MG CAP PO SCH (06:15)
[2018-02-21] MEDS: INSULIN LISPRO 100 UNIT/ML SC SCH ×3 (08:11→18:37)
--- NOTE | 2018-02-21 09:49 | SOAPPROG ---
SOAP Progress Note Assessment/Plan: Assessment/Plan: 57yo M s/p L 2nd toe amputation by Dr. Eric on 02/03/18. Admitted with worsening cellulitis, pain and swelling of LLE. POD#2 s/p amputation of distal left 2nd metatarsal by Dr. Adair Culture today grew MRSA - contact precautions IV vancomycin Pain controlled Hope to avoid TMA. Consider imaging (art studies vs CTA) if needs surgery Appreciate hospitalist management of comorbidities Wound vac change tomorrow - wednesday Dispo: continue inpt. consider SNF after discharge for wound vac/wound care S: pain controlled. no fevers. O: WDWN man, NAD, nontoxic No increased WOB No peripheral edema. Previously palpated DP and PT pulses - did not evaluate today No active erythema Wound vac dressing in place to suction Objective: Vital Signs Temp Pulse Resp BP Pulse Ox 36.7 C 67 16 115/76 95 02/21/18 08:00 02/21/18 08:00 02/21/18 08:00 02/21/18 08:00 02/21/18 08:00 Microbiology 02/19/18 10:14 Gram Stain - Final Foot - Bone Laboratory Results 02/20/18 04:40 02/20/18 04:40 02/20/18 02/21/18 02/22/18 05:59 05:59 05:59 Intake Total 950 250 Output Total 10 Balance 940 250 ICD10 Worksheet Patient Problems: Problems Problem Status Onset Gastroenteritis Acute
--- NOTE | 2018-02-21 11:21 | ASMTCMCOM ---
CM Note CM Note Notes: Pts case discussed w/ TAY Lazo. [employer] came to evaluate pt for LTC Medicaid. CM met w/ pt for dispo planning. Pt is agreeable to going outside of [facility] for SNF. Additional referrals made to SNFs. Pt reports that he recieves $194 in food stamps and $189 in [place] assistance. Pt reports that he has a phone interview w/ social security on 03/10 @ 9AM for SSI/SSDI. Pt reports that he works with Leola Stockton at [facility] (P#: [phone]) and has Dr. Carter as a psychiatrist. CM left a msg for Leola and requested a call back. CM communicated pts income status to the SNFs. CM to follow. Plan: TBD Date Signed: 02/21/2018 11:20 AM Electronically Signed By:VIKTORIA Sauceda
--- NOTE | 2018-02-21 15:49 | HOSPPROG ---
Hospitalist Progress Note Assessment/Plan: 57 yo male with recent Left 2nd toe amputation due to MRSA OM with persistent Left toe OM and left foot cellulitis #Left Foot cellulitis/ diabetic wound/OM - bone cultures from 02/19 show MRSA and Ecoli (no sensitivities yet) Foot xray (personally reviewed and interpreted) suspicious for osteomyelitis - Oxygen saturations 95% on RA - adding levofloxacin- follow cultures for E.coli sensitivity -Cont Vancomycin. -ID following -suspect will need 6 weeks of abx pending margins # s/p left 2nd metatarsal ray amputation on 02/19 - wound vac in place - PT/OT # DMII, non insulin dependent - BS 95-220 - cont glipizide and SSI # HTN with low to borderline BP # HLD # Neuropathy- cont gabapentin # Homelessness # dispo- > 2MN as requiring ongoing treatment for DM foot infection I have discussed the case with ID - we will add Levofloxacin to cover E. coli until susceptibilities are available Subjective: denies pain Objective: Vital Signs Temp Pulse Resp BP Pulse Ox 36.6 C 70 16 113/76 95 02/21/18 11:59 02/21/18 11:59 02/21/18 11:59 02/21/18 11:59 02/21/18 11:59 Microbiology 02/19/18 10:14 Gram Stain - Final Foot - Bone Laboratory Results 02/20/18 04:40 02/20/18 04:40 02/20/18 02/21/18 02/22/18 05:59 05:59 05:59 Intake Total 950 250 Output Total 10 Balance 940 250 - Physical Exam Constitutional: no apparent distress Eyes: anicteric sclera Ears, Nose, Mouth, Throat: moist mucous membranes Cardiovascular: regular rate and rhythym Respiratory: no respiratory distress Gastrointestinal: normoactive bowel sounds Genitourinary: no bladder fullness Skin: warm Musculoskeletal: No asymmetric calves Neurologic: AAOx3 Psychiatric: interacting appropriately Lymph, Heme, Immunologic: no cervical LAD ICD10 Worksheet Patient Problems: Problems Problem Status Onset Gastroenteritis Acute
--- NOTE | 2018-02-21 19:31 | SOAPPROG ---
SOAP Progress Note Assessment/Plan: Assessment: Afebrile/ wound okay/cellulitis resolving /wound VAC functioning Plan: Wound VAC change in the a.m. 02/21/18 19:31 A 5 Objective: Vital Signs Temp Pulse Resp BP Pulse Ox 36.9 C 79 16 123/79 H 94 02/21/18 15:53 02/21/18 15:53 02/21/18 15:53 02/21/18 15:53 02/21/18 15:53 Microbiology 02/19/18 10:14 Gram Stain - Final Foot - Bone Laboratory Results 02/20/18 04:40 02/20/18 04:40 02/20/18 02/21/18 02/22/18 05:59 05:59 05:59 Intake Total 950 250 Output Total 10 Balance 940 250 ICD10 Worksheet Patient Problems: Problems Problem Status Onset Gastroenteritis Acute
--- NOTE | 2018-02-21 22:06 | GCON ---
[f rep st] CONSULTATION INFECTIOUS DISEASE CONSULTATION REFERRING PHYSICIAN: Anand Nieto MD REASON FOR REFERRAL: Left foot osteomyelitis. HISTORY OF PRESENT ILLNESS: Patient is a 57-year-old male who was admitted to [facility] on 02/18/2018. He was admitted directly from Dr. Marry Eric's office in Surgery for left foot ce llulitis. The patient had a distal left 2nd toe amputation secondary to a chronic ulceration, and di stal phalanx osteomyelitis on February 03 of this year. He does have a history of type 2 diabetes. The patient was continued on Augmentin 875 p.o. b.i.d., but had increased redness and swelling of the le ft foot. He was referred in for admission. The patient was begun on vancomycin 1.25 g q.12 hours. He went to surgery on 02/19/2018 and had a completion amputation of the left 2nd digit. The left 2nd metatarsal ray was also amputated. Findings in surgery included an eroded distal metatarsal head greenwood spicious for osteomyelitis. We are consulted to help guide antibiotic therapy. Pathology from [facility] is pending. PAST MEDICAL HISTORY: 1. Diabetes mellitus, type 2. 2. History of osteomyelitis of the left 2nd toe. 3. History of diabetic neuropathy. 4. Hypertension. 5. Hyperlipidemia. 6. History of colon cancer. PAST SURGICAL HISTORY: 1. Status post recent amputation, left 2nd toe. 2. Status post bowel resection. ANTIBIOTICS: Vancomycin. ALLERGIES: The patient has no known drug allergies. SOCIAL HISTORY: Patient is a current tobacco chewer. He had former heavy alcohol use and has been s padmini for several months. He is currently homeless and denies any illicit drug use. FAMILY HISTORY: Reviewed, but noncontributory. REVIEW OF SYSTEMS: Other than that detailed above in history of present illness, comprehensive 10-sy stem review is negative. PHYSICAL EXAMINATION: VITAL SIGNS: Temperature maximum is 37.2, temperature current is 36.9. Heart rate is 79. Respiratory rate is 16. Blood pressure is 123/79. GENERAL: The patient is a well-for med, well-nourished, middle-aged male in no acute distress. He is not toxic in appearance. He is al ert and oriented x3. He is pleasant in demeanor. HEENT: Normocephalic for age. Atraumatic. No sc leral icterus. No oral lesion. No drainage from the nares. Eyes: Lids and conjunctivae are within normal limits. Pupils are equal and round bilaterally. NECK: Supple. No meningismus. LUNGS: Cl ear to auscultation bilaterally with good effort. HEART: Regular rate and rhythm. No murmur, rub, or gallop noted. No significant peripheral edema. ABDOMEN: Soft, nontender. No masses. SKIN: Wa rm and dry to the touch. No rash noted. Operative site of distal left foot with wound VAC attached. No significant proximal erythema noted. MUSCULOSKELETAL: No muscle belly tenderness is noted. No joint enlargement, effusion, or arthritis is seen. NEURO: Cranial nerves 2-12 seem to be intact. Peripheral sensation seems decreased in extremities. LABORATORY DATA: Patient has a CBC dated 02/20/2018, shows a white blood cell count of 9.0, hemoglob in of 12.4, hematocrit of 36.1, platelet count of 240. Differentials is within normal limits. Serum chemistries on 02/20/2018 show sodium of 140, potassium of 4.1, chloride of 106, bicarbonate of 24, BUN of 18, creatinine of 0.8. Vancomycin trough on 02/20/2018 is 11.4. MICROBIOLOGIC DATA: Patient has operative cultures dated 02/19/2018 which are growing both MRSA and E coli. ASSESSMENT: History of methicillin-resistant Staphylococcus aureus osteomyelitis status post toe amp utation. Extension of that osteomyelitis into the distal metatarsal of the 2nd bone of the foot. No w status post ray resection. The patient has methicillin-resistant Staphylococcus aureus and also Es cherichia coli in culture. He is covered with vancomycin for the MRSA; will have Levaquin added for E coli today. This is empiric therapy and we will have to follow up sensitivity panel once that is a vailable. Given the ray resection, I think all osteomyelitis is almost certainly removed. Given davy t, he will probably need 7-10 days postop for soft tissue involvement, otherwise that should complete therapy. PLAN: 1. Continue vancomycin at current dose. 2. Add Levaquin 750 mg daily. 3. Continue wound care and follow up on appearance of granulation tissue in the wound bed. /[id number]/MODL
[2018-02-22] MEDS: VANCOMYCIN 1.25 GM in NS 250 ML IV SCH ×2 (02:02→15:51)
[2018-02-22] MEDS: GABAPENTIN 100 MG CAP PO SCH (05:09)
[2018-02-22] MEDS: ATORVASTATIN CALCIUM 40 MG TAB PO SCH (05:10)
[2018-02-22] MEDS: TAMSULOSIN HCL 0.4 MG CAP PO SCH (05:10)
[2018-02-22] MEDS: FLUoxetine 20 MG CAP PO SCH (05:10)
[2018-02-22] MEDS: glipiZIDE 5 MG TAB PO SCH (06:58)
[2018-02-22] MEDS: INSULIN LISPRO 100 UNIT/ML SC SCH ×3 (09:34→18:39)
--- NOTE | 2018-02-22 10:24 | WOCRNPDOC ---
WOCRN Advanced Assessment Note - Skin Integrity Problem, Advanced Assess Left 2nd toe amputation site Dressing Type: Black Vac Foam, Wound Vac, Other Other Dressing Type: cast padding between toes Dressing Description: Intact Exudate Amount: Minimal Exudate Color: Red Exudate Characteristic(s): Bloody Integumentary Issue Intervention: Dressing Changed Sapna Wound Tissue: Erythema, Macerated, Swollen, Calloused Sapna Wound Swelling: Mild Wound Bed Color: Red Wound Bed Constitution: Granulation Tissue (100%) Wound Edges: Well Defined Site Odor: Slight Site Measurement - Head-to-Toe Length X Width X Depth (cm): [id number] Skin Integrity Problem Comment: Removed existing vac dressing, which had some trapped exudate under it. 100% granulation tissue noted in wound bed, w/ no apparent necrosis. Periwound erythema and swelling mild, decreased since previous assessment on 02/18. Mild maceration associated w/ trapped exudate under drape. Prepped and draped periwound skin w/ Mastisol and skin prep, and 1 piece black [place] foam placed into wound bed and bridged to dorsal aspect aspect of L foot. Vac settings resume at -125mmHg, low, continuous suction. Report given to ANGELITO Art. Next dressing change scheduled for 02/24 if patient remains inpatient.
--- NOTE | 2018-02-22 12:37 | SOAPPROG ---
SOAP Progress Note Assessment/Plan: Assessment/Plan: 57 Y diabetic homeless male s/p completion L 2nd toe amputation for osteomyelitis. Cultures with staph aureus. Vac change done today. Patient tolerated this well. Viewed pictures. Per wound RN, excellent granulation. Vac change Thurs, then further dispo planning. Placement will be an issue for patient. Uncertain if he will need vac on discharge--will decide pending healing. [facility] but needs to leave during the day and so he has been walking on his foot. This potentially could have caused his poor healing and infection. Difficult situation. Vac is to good suction and he has a palpable PT pulse (DP pulse blocked by vac bridge). 02/22/18 12:36 Objective: Vital Signs Temp Pulse Resp BP Pulse Ox 36.6 C 92 18 106/73 95 02/22/18 11:23 02/22/18 11:23 02/22/18 11:23 02/22/18 11:23 02/22/18 11:23 Microbiology 02/19/18 10:14 Gram Stain - Final Foot - Bone Laboratory Results 02/20/18 04:40 02/22/18 05:00 02/21/18 02/22/18 02/23/18 05:59 05:59 05:59 Intake Total 250 Balance 250 ICD10 Worksheet Patient Problems: Problems Problem Status Onset Gastroenteritis Acute
--- NOTE | 2018-02-22 14:05 | PCMIDPN ---
Assessment/Plan: Assessment/Plan: 1. Left foot cellulitis and 2nd Metatarsal head osteomyelitis: - s/p surgery on 02/19/18. - Path pending -cultures from 02/19/18 with MRSa (vanco LISETH =1) and rare E.coli ( susceptibilites pending) - Currently on VAnco + levaquin - vanco trough form 02/20/18 - 11.4 . Recheck later in week. -duration of antibiotics to be determined, still with pending data -care coordinated with Deanna Juares vanco 1.25gm q12- 02/20/18 levaquin 750mg qd- 02/21/18 Subjective: afebrile. feelling better overall compared to admit. Denies sob, abd pain, or diarrhea. new phlebitis on right forearm from peripheral IV Objective: Vital Signs Temp Pulse Resp BP Pulse Ox 36.6 C 92 18 106/73 95 02/22/18 11:23 02/22/18 11:23 02/22/18 11:23 02/22/18 11:23 02/22/18 11:23 Microbiology 02/19/18 10:14 Gram Stain - Final Foot - Bone Laboratory Results 02/20/18 04:40 02/22/18 05:00 02/21/18 02/22/18 02/23/18 05:59 05:59 05:59 Intake Total 250 Balance 250 C-Reactive Protein 53.9 mg/L (<10.0) H 02/18/18 12:24 - Physical Exam General Appearance: alert, no apparent distress Respiratory: lungs clear Cardiac/Chest: regular rate, rhythm Extremities: No swelling Abdomen: normal bowel sounds, non-tender, soft, No distended Skin: erythema (right forearm related to PIV. Left foot with wound vac noted. no erythema on dorsum of foot. not warm.nontender) ICD10 Worksheet Patient Problems: Problems Problem Status Onset Gastroenteritis Acute
--- NOTE | 2018-02-22 15:46 | HOSPPROG ---
Hospitalist Progress Note Assessment/Plan: 57 yo male with recent Left 2nd toe amputation due to MRSA OM with persistent Left toe OM and left foot cellulitis #Left Foot cellulitis/ diabetic wound/OM - bone cultures from 02/19 show MRSA and Ecoli (no sensitivities yet) Foot xray (personally reviewed and interpreted) suspicious for osteomyelitis - Oxygen saturations 95% on RA -cont levofloxacin- follow cultures for E.coli sensitivity -Cont Vancomycin. -ID following -anticipate wound vac change today # s/p left 2nd metatarsal ray amputation on 02/19 - wound vac in place - PT/OT # DMII, non insulin dependent - BS 138-228 - cont glipizide and SSI # HTN with low to borderline BP # HLD # Neuropathy- cont gabapentin # Homelessness # dispo- > 2MN as requiring ongoing treatment for DM foot infection I have discussed the case with RN - Wound Care eval and VAC change today Subjective: Tolerating p.o. Objective: Vital Signs Temp Pulse Resp BP Pulse Ox 36.9 C 84 18 116/84 H 94 02/22/18 14:45 02/22/18 14:45 02/22/18 14:45 02/22/18 14:45 02/22/18 14:45 Microbiology 02/19/18 10:14 Gram Stain - Final Foot - Bone Laboratory Results 02/20/18 04:40 02/22/18 05:00 02/21/18 02/22/18 02/23/18 05:59 05:59 05:59 Intake Total 250 Balance 250 - Physical Exam Constitutional: appears nourished Eyes: anicteric sclera Ears, Nose, Mouth, Throat: moist mucous membranes Cardiovascular: regular rate and rhythym Respiratory: no respiratory distress, no rales or rhonchi Gastrointestinal: normoactive bowel sounds Genitourinary: no bladder fullness Skin: warm Musculoskeletal: No asymmetric calves Neurologic: AAOx3 Psychiatric: interacting appropriately Lymph, Heme, Immunologic: no cervical LAD ICD10 Worksheet Patient Problems: Problems Problem Status Onset Gastroenteritis Acute
--- NOTE | 2018-02-22 16:26 | ASMTCMCOM ---
CM Note CM Note Notes: Spoke with patient who is hoping for SNF rehab. Patient signed a release so we can coordinate with Leola Stockton who is his therapist and director critical care at [facility]. The release is in patient's medical chart. Spoke with Eliana from [facility] who says he is nursing appropriate and his case is with her supervisors. They are awaiting the financials to approve his admit to their facility. CM will follow. Date Signed: 02/22/2018 04:26 PM Electronically Signed By:Amy Moscoso LCSW
[2018-02-23] MEDS: VANCOMYCIN 1.25 GM in NS 250 ML IV SCH ×2 (02:32→16:34)
[2018-02-23] MEDS: glipiZIDE 5 MG TAB PO SCH (06:14)
[2018-02-23] MEDS: TAMSULOSIN HCL 0.4 MG CAP PO SCH (06:14)
[2018-02-23] MEDS: GABAPENTIN 100 MG CAP PO SCH (06:14)
[2018-02-23] MEDS: ATORVASTATIN CALCIUM 40 MG TAB PO SCH (06:14)
[2018-02-23] MEDS: FLUoxetine 20 MG CAP PO SCH (06:14)
[2018-02-23] MEDS: INSULIN LISPRO 100 UNIT/ML SC SCH ×3 (08:11→18:32)
--- NOTE | 2018-02-23 08:31 | SOAPPROG ---
SOAP Progress Note Assessment/Plan: Assessment/Plan: 57yo M s/p L 2nd toe amputation by Dr. Eric on 02/03/18. Admitted with worsening cellulitis, pain and swelling of LLE. POD#4 s/p amputation of distal left 2nd metatarsal by Dr. Adair Cx - MRSA, e. coli - contact precautions. Appreciate ID. IV antibiotics Pain controlled Appreciate hospitalist management of comorbidities Wound vac change tomorrow - OK to shower before dressing change. Dispo: continue inpt. consider SNF after discharge for wound vac/wound care. Seen by Dr. Eric S: pain controlled. no fevers. No redness O: WDWN man, NAD, nontoxic No increased WOB No peripheral edema No erythema Wound vac dressing in place to suction Objective: Vital Signs Temp Pulse Resp BP Pulse Ox 36.6 C 66 16 107/74 96 02/23/18 07:33 02/23/18 07:33 02/23/18 07:33 02/23/18 07:33 02/23/18 07:33 Microbiology 02/19/18 10:14 Gram Stain - Final Foot - Bone Laboratory Results 02/20/18 04:40 02/22/18 05:00 ICD10 Worksheet Patient Problems: Problems Problem Status Onset Gastroenteritis Acute
--- NOTE | 2018-02-23 09:07 | PCMIDPN ---
Assessment/Plan: MRSA, EColi L foot cellulitis and 2nd met OM s/p debridement 02/19. no residual cellulitis L foot --continue vancomycin, check trough &Cr --levofloxacin for empiric coverage of E coli, change to PO, tolerating full diet --high risk would treat for OM until bone back from path, ordered PICC --wound vac change tomorrow. --contact precautions Microbiology 02/19/18 10:14 Foot - Bone Anaerobic Culture - Preliminary MRSA Escherichia Coli Medications 3 Generic Name Dose Route Start Last Admin Trade Name Ashvin PRN Reason Stop Dose Admin Levofloxacin/Dextrose 150 mls @ 100 mls/hr 02/21/18 16:00 02/23/18 08:09 Levaquin 750 Mg (Premix) IV 03/23/18 15:59 150 mls DAILY MARCY Protocol Vancomycin HCl 1.25 gm/ Sodium 250 mls @ 166.667 mls/hr 02/18/18 14:00 02:32 Chloride IV 03/20/18 13:59 250 mls 0200,1400 MARCY Subjective: no left foot pain no diarrhea no rash Objective: Vital Signs Temp Pulse Resp BP Pulse Ox 36.6 C 66 16 107/74 96 02/23/18 07:33 02/23/18 07:33 02/23/18 07:33 02/23/18 07:33 02/23/18 07:33 Microbiology 02/19/18 10:14 Gram Stain - Final Foot - Bone Laboratory Results 02/20/18 04:40 02/22/18 05:00 C-Reactive Protein 53.9 mg/L (<10.0) H 02/18/18 12:24 - Physical Exam General Appearance: alert, no apparent distress EENT: poor dentition, No thrush Respiratory: lungs clear, No accessory muscle use Neck: supple Cardiac/Chest: regular rate, rhythm Extremities: non-tender, No pedal edema Male Genitalia: No burciaga Skin: warm/dry, No jaundice, No rash Neuro/Psych: alert, normal mood/affect, oriented x 3 - Line/s PIV Lines: No drainage, No erythema - Time Spent With Patient Time Spent with Patient: greater than 35 minutes (discussed with Dr. Eric) Time Spent with Patient: Greater than 35 minutes spent on this patients care, greater than 50% of time spent counseling, educating, and coordinating care regarding the above mentioned plan. ICD10 Worksheet Patient Problems: Problems Problem Status Onset Gastroenteritis Acute
[2018-02-23] MEDS ORDERED: ALTEPLASE 2 MG VIAL IVP PRN (14:27)
--- NOTE | 2018-02-23 16:17 | HOSPPROG ---
Hospitalist Progress Note Assessment/Plan: * Left foot cellulitis/osteomyelitis s/p toe amputation - MRSA and Ecoli -Levaquin/IV Vanco per ID -wound vac per surgery - likely dispo to SNF * DM II -glipizide, metformin, Tradjenta -consider uptitrate meds due to poor control - HgA1c 7.5 * Neuropathy -gabapentin * Hyperlipidemia -statin Subjective: no complaints Objective: Vital Signs Temp Pulse Resp BP Pulse Ox 36.6 C 82 12 117/72 95 02/23/18 11:28 02/23/18 11:28 02/23/18 11:28 02/23/18 11:28 02/23/18 11:28 Microbiology 02/19/18 10:14 Gram Stain - Final Foot - Bone Laboratory Results 02/20/18 04:40 02/23/18 13:45 - Physical Exam Constitutional: no apparent distress, appears nourished, not in pain Cardiovascular: regular rate and rhythym, no murmur, rub, or gallop Respiratory: no respiratory distress, no rales or rhonchi, clear to auscultation Gastrointestinal: normoactive bowel sounds, soft, non-tender abdomen, no palpable masses Skin: no rashes or abrasions, no fluctuance, no induration, other (wound vac in place with surrounding skin looking good) Neurologic: AAOx3, sensation intact bilaterally Psychiatric: interacting appropriately, not anxious, not encephalopathic, thought process linear ICD10 Worksheet Patient Problems: Problems Problem Status Onset Gastroenteritis Acute
--- NOTE | 2018-02-23 17:06 | ASMTCMCOM ---
CM Note CM Note Notes: Received call back from Edy at [facility] - Lisa from [facility] [phone] was out yesterday to do assessment and apparently did not have a valid number to reach us today. Regine is reviewing pt for Medicaid SNF admission. Left ms for Lisa to call [facility] SW tomorrow. Date Signed: 02/23/2018 05:05 PM Electronically Signed By:DAYNA Montes
[2018-02-24] MEDS: INSULIN LISPRO 100 UNIT/ML SC SCH ×4 (00:11→16:46)
[2018-02-24] MEDS: VANCOMYCIN 1.25 GM in NS 250 ML IV SCH ×2 (02:05→13:38)
[2018-02-24 04:40] LABS: PLATELET COUNT 237 10^3/uL (150-400)
[2018-02-24] MEDS: GABAPENTIN 100 MG CAP PO SCH (05:37)
[2018-02-24] MEDS: glipiZIDE 5 MG TAB PO SCH (05:38)
[2018-02-24] MEDS: TAMSULOSIN HCL 0.4 MG CAP PO SCH (05:38)
[2018-02-24] MEDS: ATORVASTATIN CALCIUM 40 MG TAB PO SCH (05:38)
[2018-02-24] MEDS: FLUoxetine 20 MG CAP PO SCH (05:38)
[2018-02-24] MEDS ORDERED: NON-FORMULARY NEW DRUG (Metformin Hcl [Metformin Hcl Er] 500 MG) PO SCH (06:00)
[2018-02-24] MEDS ORDERED: metFORMIN SR 500 MG TAB PO SCH (06:00)
--- NOTE | 2018-02-24 09:14 | PDIAF ---
- Diagnosis Diagnosis: ESBL E coli & MRSA OM L 2nd metatarsal Code Status: Full Code - Medication Management Discharge Medications: Medications to Continue on Transfer Atorvastatin Calcium [Lipitor 40 mg (*)] 40 mg PO DAILY06 11/23/17 [Last Taken 02/18/18] FLUoxetine [Prozac 20 MG (*)] 20 mg PO DAILY06 11/23/17 [Last Taken 02/18/18] Gabapentin [Neurontin 100 MG (*)] 100 mg PO DAILY06 11/23/17 [Last Taken ] Lisinopril [Zestril 20 mg (*)] 20 mg PO DAILY06 11/23/17 [Last Taken 02/18/18] Naltrexone HCl 50 mg INJ Q30D 11/23/17 [Last Taken 2 Weeks Ago ~02/04/18] Tamsulosin HCl [Flomax 0.4 MG (*)] 0.4 mg PO DAILY06 11/23/17 [Last Taken ] glipiZIDE [Glipizide] 2.5 mg PO DAILY06 11/23/17 [Last Taken 02/18/18] metFORMIN HCL [Metformin HCl ER] 500 mg PO DAILY06 02/03/18 [Last Taken 02/18/18 ] Linagliptin [Tradjenta] 5 mg PO DAILY06 02/17/18 [Last Taken 02/18/18] Amoxicillin/Clavulanate Pot [Augmentin 875 MG TAB (*)] 875 mg PO BID 02/18/18 [ Last Taken 02/18/18] Transportation Aide Antibiotics: Levofloxacin 750mg PO Daily; vancomycin 1.25gm IV [id number] Long-Term Antibiotic Stop Date: 03/07/18 Discharge Medications: Refer to the Discharge Home Medication list for PRN reason. PICC Care - Routine: Yes - Orders Isolation Type: Contact Isolation - Labs/Radiology BMP Date: 03/03/18 (weekly ) CBC w/diff Date: 02/28/18 (weekly wednesday) CMP Date: 02/28/18 (weekly wednesday) Vanco Trough Date and Time: 02/28/18 and 03/03/18 Weekly Wednesday and Call or Fax Lab and Imaging Results to: Ju Goldstein MD [facility] at fax [phone] - Follow Up Care Current Providers and Referrals: Paola Smith, ISA [Primary Care Provider] - Ju Goldstein MD [Medical Doctor] - 03/03/18 11:30 am
--- NOTE | 2018-02-24 11:04 | SOAPPROG ---
SOAP Progress Note Assessment/Plan: Assessment: 57 yo s/p amputation of toe and then 2nd metatarsal I think he failed due to homeless situation and needing to be on his feet walking despite being in a [facility] SNF Wound vac change 3x per week F/U with me in 10 days S: Feeling better O: No erythema on skin. Wound vac in place Plan: 02/24/18 11:03 Objective: Vital Signs Temp Pulse Resp BP Pulse Ox 36.4 C 74 18 104/76 95 02/24/18 08:00 02/24/18 08:00 02/24/18 08:00 02/24/18 08:00 02/24/18 08:00 Microbiology 02/19/18 10:14 Gram Stain - Final Foot - Bone Laboratory Results 02/24/18 04:30 02/24/18 04:30 ICD10 Worksheet Patient Problems: Problems Problem Status Onset Gastroenteritis Acute
--- NOTE | 2018-02-24 15:50 | PCMIDPN ---
Assessment/Plan: MRSA, ESBL EColi L foot cellulitis and 2nd met OM s/p debridement 02/19. no residual cellulitis L foot --continue vancomycin , levoflox --high risk would treat for OM until bone back from path --contact precautions for MRSA &ESBL E coli --discharge plans in works, interagency completed Microbiology 02/19/18 10:14 Foot - Bone Anaerobic Culture - Preliminary MRSA ESB: Escherichia Coli Medications Levofloxacin 750mg PO Daily; vancomycin 1.25gm IV [id number] Stop Date: 03/07/18 Subjective: feeling well no c/o denies diarrhea Objective: Vital Signs Temp Pulse Resp BP Pulse Ox 36.4 C 80 16 115/77 95 02/24/18 12:00 02/24/18 12:00 02/24/18 12:00 02/24/18 12:00 02/24/18 12:00 Microbiology 02/19/18 10:14 Gram Stain - Final Foot - Bone Laboratory Results 02/24/18 04:30 02/24/18 04:30 C-Reactive Protein 53.9 mg/L (<10.0) H 02/18/18 12:24 - Physical Exam General Appearance: alert, no apparent distress Neck: supple Extremities: other (L foot with dependent redness, no erythema, wound vac in place over site of 2nd digit) Skin: normal color, warm/dry, No rash Neuro/Psych: alert, normal mood/affect, oriented x 3 - Line/s RUE PICC Lines: No drainage, No erythema - Time Spent With Patient Time Spent with Patient: greater than 25 minutes Time Spent with Patient: Greater than 25 minutes spent on this patients care, greater than 50% of time spent counseling, educating, and coordinating care regarding the above mentioned plan. ICD10 Worksheet Patient Problems: Problems Problem Status Onset Gastroenteritis Acute
--- NOTE | 2018-02-24 16:39 | ASMTCMCOM ---
CM Note CM Note Notes: Today Lucho from [facility] denied Pt. due to costs of wound vac and IV antibiotics with Medicaid benefit. Sharri spoke w/ Luisa from [facility] who is going to pursue placement at [facility] or [place] or any other [facility] facilities. Luisa did not call back, so Sharri called again. [place] [facility] [place] Lisa from [facility] has approved Pt. for stay. Just waiting to send documents to proper LTC facility. Await word from Luisa at [facility] regarding placement. Date Signed: 02/24/2018 04:38 PM Electronically Signed By:Neema Cho LCSW
--- NOTE | 2018-02-24 16:57 | HOSPPROG ---
Hospitalist Progress Note Assessment/Plan: * Left foot cellulitis/osteomyelitis s/p toe amputation - MRSA and Ecoli -Levaquin/IV Vanco per ID -wound vac per surgery - likely dispo to SNF * DM II -glipizide, metformin, Tradjenta -consider uptitrate meds due to poor control - HgA1c 7.5 -increase metformin * Neuropathy -gabapentin * Hyperlipidemia -statin Subjective: No complaints. Objective: Vital Signs Temp Pulse Resp BP Pulse Ox 36.8 C 80 16 113/76 94 02/24/18 16:00 02/24/18 16:00 02/24/18 16:00 02/24/18 16:00 02/24/18 16:00 Microbiology 02/19/18 10:14 Gram Stain - Final Foot - Bone Laboratory Results 02/24/18 04:30 02/24/18 04:30 - Physical Exam Constitutional: no apparent distress, appears nourished, not in pain Cardiovascular: regular rate and rhythym, no murmur, rub, or gallop Respiratory: no respiratory distress, no rales or rhonchi, clear to auscultation Gastrointestinal: normoactive bowel sounds, soft, non-tender abdomen, no palpable masses Skin: no rashes or abrasions, no fluctuance, no induration Neurologic: AAOx3, sensation intact bilaterally Psychiatric: interacting appropriately, not anxious, not encephalopathic, thought process linear ICD10 Worksheet Patient Problems: Problems Problem Status Onset Gastroenteritis Acute
[2018-02-24] MEDS: metFORMIN SR 500 MG TAB PO SCH (20:10)
[2018-02-25] MEDS: VANCOMYCIN 1.25 GM in NS 250 ML IV SCH ×2 (02:09→14:23)
[2018-02-25] MEDS: GABAPENTIN 100 MG CAP PO SCH (05:12)
[2018-02-25] MEDS: FLUoxetine 20 MG CAP PO SCH (05:12)
[2018-02-25] MEDS: ATORVASTATIN CALCIUM 40 MG TAB PO SCH (05:12)
[2018-02-25] MEDS: TAMSULOSIN HCL 0.4 MG CAP PO SCH (05:12)
[2018-02-25] MEDS: glipiZIDE 5 MG TAB PO SCH (05:12)
[2018-02-25] MEDS: INSULIN LISPRO 100 UNIT/ML SC SCH ×3 (09:45→18:06)
[2018-02-25] MEDS: metFORMIN SR 500 MG TAB PO SCH (09:46)
--- NOTE | 2018-02-25 14:58 | ASMTCMCOM ---
CM Note CM Note Notes: SWer sent updates to [facility] today at Luisa's request. Today Pt was accepted to [facility] LTC Medicaid stay. Luisa to admit Pt. tomorrow. SWer spoke w/ Lisa at [facility] who will fax approval for LTC stay to [facility] today around 16:00. SWer will f/u to make sure approval is faxed. SWer met w/ Pt. in room to explain plan. Pt very grateful for LTC placement. SWer also coordinated w/ RN and MD. SWer plans to follow up tomorrow for d/c. Plan: d/c tomorrow (Sat) to [facility] Date Signed: 02/25/2018 02:57 PM Electronically Signed By:Neema Cho LCSW
--- NOTE | 2018-02-25 15:36 | WOCRNPDOC ---
WOCRN Advanced Assessment Note - Skin Integrity Problem, Advanced Assess Left 2nd toe amputation site Dressing Type: Black Vac Foam, Wound Vac Dressing Description: Intact Exudate Amount: Scant Exudate Color: Red Exudate Characteristic(s): Bloody Integumentary Issue Intervention: Dressing Changed, Skin Tissue Substitute Application (Amniofill applied) Cassie Wound Tissue: Macerated (mild), Calloused (on plantar surface) Cassie Wound Swelling: Mild Wound Bed Color: Red Wound Bed Constitution: Granulation Tissue (100%) Site Measurement - Head-to-Toe Length X Width X Depth (cm): 4.5cmx1.5cmx1.8cm Skin Integrity Problem Comment: Wound granulation tissue throughout, no necrosis noted. Some mild maceration cassie-wound, tissues remain intact. Amniofill applied to wound bed by ANGELITO Stephen. Cassie-wound skin prepped and draped, Mastisol applied to promote better seal and protect underlying skin. One piece of black foam applied to wound bed over Amniofill and foam bridged to dorsal aspect of L foot. Per Dr. Eric, awaiting update about facility placement. If patient goes to facility w/ a [employer] vac, dressing can remain intact until 03/04. If he dc's to a facility that uses an [employer] vac, dressing will need to be changed from [employer] foam to [employer] foam. Wound care will continue to follow.
[2018-02-25] MEDS ORDERED: metFORMIN SR 500 MG TAB PO SCH (15:43)
--- NOTE | 2018-02-25 15:47 | HOSPPROG ---
Hospitalist Progress Note Assessment/Plan: * Left foot cellulitis/osteomyelitis s/p toe amputation - MRSA and Ecoli -Levaquin/IV Vanco per ID -wound vac - to [facility] in am * DM II -glipizide, metformin, Tradjenta -consider uptitrate meds due to poor control - HgA1c 7.5 -increase metformin * Neuropathy -gabapentin * Hyperlipidemia -statin Subjective: No new complaints. Objective: Vital Signs Temp Pulse Resp BP Pulse Ox 36.7 C 69 14 112/76 96 02/25/18 12:56 02/25/18 12:56 02/25/18 12:56 02/25/18 12:56 02/25/18 12:56 Microbiology 02/19/18 10:14 Gram Stain - Final Foot - Bone Laboratory Results 02/24/18 04:30 02/24/18 04:30 - Physical Exam Constitutional: no apparent distress, appears nourished, not in pain Cardiovascular: regular rate and rhythym, no murmur, rub, or gallop Respiratory: no respiratory distress, no rales or rhonchi, clear to auscultation Gastrointestinal: normoactive bowel sounds, soft, non-tender abdomen, no palpable masses Skin: no rashes or abrasions, no fluctuance, no induration Neurologic: AAOx3, sensation intact bilaterally Psychiatric: interacting appropriately, not anxious, not encephalopathic, thought process linear ICD10 Worksheet Patient Problems: Problems Problem Status Onset Gastroenteritis Acute
--- NOTE | 2018-02-25 17:33 | SOAPPROG ---
SOAP Progress Note Assessment/Plan: Assessment/Plan: 57yo M s/p L 2nd toe amputation by Dr. Eric on 02/03/18. Admitted with worsening cellulitis, pain and swelling of LLE. S/p amputation of distal left 2nd metatarsal by Dr. Adair Cx - MRSA, e. coli - contact precautions. Appreciate ID. IV antibiotics Pain controlled Appreciate hospitalist management of comorbidities Wound vac changed today - placed amniofill under vac. Will not be changed x 1 week or discharge (check with [place] or [facility] before removing vac) Dispo: pending placement to SNF after discharge for wound vac/wound care. Seen with Dr. Eric S: pain controlled. no fevers. No redness. Feels "110% better" O: WDWN man, NAD, nontoxic No increased WOB No peripheral edema No erythema Amputation site with beefy red healthy granulation tissue in the base. Amniofill applied. No evidence of infection. Wound VAC reapplied Objective: Vital Signs Temp Pulse Resp BP Pulse Ox 36.7 C 80 14 133/72 H 94 02/25/18 16:01 02/25/18 16:01 02/25/18 16:01 02/25/18 16:01 02/25/18 16:01 Microbiology 02/19/18 10:14 Gram Stain - Final Foot - Bone Laboratory Results 02/24/18 04:30 02/24/18 04:30 ICD10 Worksheet Patient Problems: Problems Problem Status Onset Gastroenteritis Acute
[2018-02-26] MEDS: VANCOMYCIN 1.25 GM in NS 250 ML IV SCH ×2 (01:31→12:50)
[2018-02-26] MEDS: glipiZIDE 5 MG TAB PO SCH (05:46)
[2018-02-26] MEDS: GABAPENTIN 100 MG CAP PO SCH (05:46)
[2018-02-26] MEDS: TAMSULOSIN HCL 0.4 MG CAP PO SCH (05:46)
[2018-02-26] MEDS: ATORVASTATIN CALCIUM 40 MG TAB PO SCH (05:46)
[2018-02-26] MEDS: FLUoxetine 20 MG CAP PO SCH (05:46)
[2018-02-26] MEDS ORDERED: metFORMIN SR 500 MG TAB PO SCH (06:00)
[2018-02-26 07:52] VITALS: BP 110/78
[2018-02-26] MEDS: INSULIN LISPRO 100 UNIT/ML SC SCH ×2 (09:31→12:42)
--- NOTE | 2018-02-26 10:57 | PDIAF ---
- Diagnosis Diagnosis: ESBL E coli & MRSA OM L 2nd metatarsal Code Status: Full Code - Medication Management Discharge Medications: Medications to Continue on Transfer Atorvastatin Calcium [Lipitor 40 mg (*)] 40 mg PO DAILY06 11/23/17 [Last Taken 02/18/18] FLUoxetine [Prozac 20 MG (*)] 20 mg PO DAILY06 11/23/17 [Last Taken 02/18/18] Gabapentin [Neurontin 100 MG (*)] 100 mg PO DAILY06 11/23/17 [Last Taken ] Naltrexone HCl 50 mg INJ Q30D 11/23/17 [Last Taken 2 Weeks Ago ~02/04/18] Tamsulosin HCl [Flomax 0.4 MG (*)] 0.4 mg PO DAILY06 11/23/17 [Last Taken ] glipiZIDE [Glipizide] 2.5 mg PO DAILY06 11/23/17 [Last Taken 02/18/18] metFORMIN HCL [Metformin HCl ER] 500 mg PO DAILY06 02/03/18 [Last Taken 02/18/18 ] Linagliptin [Tradjenta] 5 mg PO DAILY06 02/17/18 [Last Taken 02/18/18] Lisinopril [Zestril 2.5 mg (*)] 2.5 mg PO DAILY #30 tab 02/26/18 [Last Taken Unknown] Vancomycin [Vancomycin (*)] 1.25 gm IV 0200,1400 #7 vial 02/26/18 [Last Taken Unknown] levOFLOXACIN [levAQUIN (*)] 750 mg PO DAILY10 #20 tab 02/26/18 [Last Taken Unknown] Pump Erector Antibiotics: Levofloxacin 750mg PO Daily; vancomycin 1.25gm IV [id number] Correction Antibiotic Stop Date: 03/07/18 Discharge Medications: Refer to the Discharge Home Medication list for PRN reason. PICC Care - Routine: Yes - Orders Isolation Type: Contact Isolation Diet Recommendation: no restrictions on diet Equipment: First wound vac change . Change wound vac 3 x week. - Labs/Radiology BMP Date: 03/03/18 (weekly ) CBC w/diff Date: 02/28/18 (weekly wednesday) CMP Date: 02/28/18 (weekly wednesday) Vanco Trough Date and Time: 02/28/18 and 03/03/18 Weekly Wednesday and Call or Fax Lab and Imaging Results to: Ju Goldstein MD [facility] at fax [phone] - Follow Up Care Current Providers and Referrals: Paola Smith, ISA [Primary Care Provider] - Ju Goldstein MD [Medical Doctor] - 03/03/18 11:30 am Chantal Eric MD [Medical Doctor] - follow up in 10 days (Wound Care)
--- NOTE | 2018-02-26 11:26 | GDS ---
[f rep st] DISCHARGE SUMMARY DISCHARGE DIAGNOSES: 1. Left foot cellulitis and osteomyelitis, status post 2nd toe amputation. 2. Methicillin-resistant Staphylococcus aureus and Escherichia coli. 3. Diabetes type 2. 4. Neuropathy. 5. Hyperlipidemia. HISTORY: The patient is a 57-year-old male, homeless, with a diabetic foot infection that was failin g treatment, presented to the hospital and got a toe amputation of his 2nd digit on the left foot. T here is some residual osteomyelitis in the bone. Cultures grew MRSA and E coli. He is followed by osmar Goldstein and Chantal Eric. He will be discharged to [facility] with a wound VAC in place an d follow up with the Wound Care Clinic. Levaquin and IV vancomycin per Infectious Disease. Diabetes is poorly controlled with a hemoglobin A1c of 7.5. I tried to up titrate his metformin, and he refused. Further care with physicians at [facility] regarding diabetes management. Improved diabetic control would improve wound healing. DISCHARGE MEDICATIONS: Please see computer record for full detailed list. New medications: 1. Vancomycin 1.25 g IV b.i.d. 2. Levaquin 750 mg p.o. daily. 3. Lisinopril decreased to 2.5 mg p.o. daily for hypotension. ADDITIONAL DISCHARGE INSTRUCTIONS: 1. Transfer to [facility] for further care. 2. Change the wound VAC 3 times a week with the first wound VAC change March 02. 3. Follow up with Dr. Chatnal Eric in 10 days. 4. Stop date for Levaquin and vancomycin is March 07. 5. Follow up with Dr. Ju Goldstein, appointment scheduled March 03 at 11:30 a.m. 6. Routine PICC line care and followup laboratory studies ordered by Infectious Disease. 7. Greater than 30 minutes' time was spent arranging this discharge. Patient was seen and examined by fauzia whitley on the day of discharge. /[id number]/MODL
--- NOTE | 2018-02-26 16:10 | ASDISCHSUM ---
Discharge Information Plan Status:SNF Medically Cleared to Leave: Discharge Date:02/26/2018 02:52 PM CM D/C Disposition:Custodial Facility ADT D/C Disposition:Custodial Facility Projected Discharge Date:02/26/2018 11:00 AM Transportation at D/C:Wheelchair Van Discharge Delay Reason: Follow-Up Date:02/26/2018 11:00 AM Discharge Slot: Final Diagnosis: Placement Information Referral Type:*Usp/SNF Referral ID:[id number] Provider Name:Alicia Reina/SHAWNA Parker Address 1:[address] Phone Number: Address 2: Fax Number: [facility]:[place] Selection Factors: State:[place] Patient Contact Information Contact Name:ENAMORADO (JACKIE) Relationship: Address:[facility] [place] City:[place] Alternate Phone: State/Zip Code:[place] [address] Email: Financial Information Financial Class:Medicaid Primary Plan Desc:[facility] Primary Plan Number:[id number] Secondary Plan Desc: Secondary Plan Number: Assessment Information [facility] CM Progress Note CM Note CM Note Notes: Pt is a 57 yr old homeless man who was recently discharged to the fdc after a left toe amputation ( he had a walking boot) and has been diligent about his f/u appts with Dr Eric. Of note, his Evelia, lives in the [facility]. He has a hx of etoh but has been sober for several months, he does not currently use tobacco per chart. He also is current with [facility] and has a test case developer named Va, pt has number. CM called her at last admission but she never called back. Pt was taken to surgery today, as of now no therapies are ordered, has Medicaid. DC Plan: TBD Date Signed: 02/19/2018 10:37 AM Electronically Signed By:Evelia Parisi RN LACE LACE Length of stay for Answers: 4-6 days current admission Acuity / Level of Answers: Yes Care: Did the patient have an inpatient admission? Comorbidities - select Answers: Diabetes (uncontrolled or all that apply controlled) Other Notes: HTN, Hyperlipidemia, Co naye ca # of Emergency department Answers: 1-2 visits in the last 6 months Social determinants Answers: History of substance abuse (ETOH, street drugs, prescription drugs, etc.) Homelessness (street, fdc) Mental health diagnosis (anxiety, depression, pers onality disorders, etc.) Lack of community resources and/or lack of social support (no pcp, lives alone, transportation, damon d) Score: 23 Date Signed: 02/24/2018 04:34 PM Electronically Signed By:Neema Cho LCSW [facility] Progress Note CM Note CM Note Notes: Met with patient who is in bed with a wound vac on his foot. He is homeless, He lives apart from his who has housing. He is interested in applying for medicaid benefits and possibly going to [facility] or [facility] for recovery. [id number] filled out and faxed with H&P, meds. Referrals placed via [employer]. PASSR completed. CM to follow. Date Signed: 02/20/2018 12:19 PM Electronically Signed By:Rachana Rooney RN [facility] CM Progress Note CM Note CM Note Notes: Pts case discussed w/ TAY Lazo. [employer] came to evaluate pt for LTC Medicaid. CM met w/ pt for dispo planning. Pt is agreeable to going outside of [facility] for SNF. Additional referrals made to SNFs. Pt reports that he recieves $194 in food stamps and $189 in [place] assistance. Pt reports that he has a phone interview w/ social security on 03/10 @ 9AM for SSI/SSDI. Pt reports that he works with Leola Stockton at [facility] (P#: [phone]) and has Dr[address] Carter as a psychiatrist. CM left a msg for Leola and requested a call back. CM communicated pts income status to the SNFs. CM to follow. Plan: TBD Date Signed: 02/21/2018 11:20 AM Electronically Signed By:VIKTORIA Sauceda [facility] Progress Note CM Note CM Note Notes: Spoke with patient who is hoping for SNF rehab. Patient signed a release so we can coordinate with Leola Stockton who is his therapist and acute care assistant at [facility]. The release is in patient's medical chart. Spoke with Eliana from [facility] who says he is nursing appropriate and his case is with her supervisors. They are awaiting the financials to approve his admit to their facility. CM will follow. Date Signed: 02/22/2018 04:26 PM Electronically Signed By:Amy Moscoso LCSW [facility] CM Progress Note CM Note CM Note Notes: Received call back from Edy at [facility] - Lisa from [facility] [phone] was out yesterday to do assessment and apparently did not have a valid number to reach us today. Regine is reviewing pt for Medicaid SNF admission. Left ms for Lisa to call [facility] tomorrow. Date Signed: 02/23/2018 05:05 PM Electronically Signed By:DAYNA Montes [facility] CM Progress Note CM Note CM Note Notes: Today [facility] denied Pt[facility] due to costs of wound vac and IV antibiotics with Medicaid benefit. Sharri spoke w/ Luisa from [facility] who is going to pursue placement at [facility] or [place] or any other [facility] facilities. Luisa did not call back, so Sharri called again. [place] [facility] [place] Lisa from [facility] has approved Pt. for stay. Just waiting to send documents to proper LTC facility. Await word from Luisa at [facility] regarding placement. Date Signed: 02/24/2018 04:38 PM Electronically Signed By:Neema Cho LCSW [facility] CM Progress Note CM Note CM Note Notes: SWer sent updates to [facility] today at Luisa's request. Today Pt was accepted to [facility] Medicaid stay. Luisa to admit Pt. tomorrow. Sharri spoke w/ Lisa at [facility] who will fax approval for LTC stay to [facility] today around 16:00. SWer will f/u to make sure approval is faxed. Sharri met w/ Pt. in room to explain plan. Pt very grateful for LTC placement. Miguelitor also coordinated w/ RN and MD. Sharri plans to follow up tomorrow for d/c. Plan: d/c tomorrow (Sat) to [facility] Date Signed: 02/25/2018 02:57 PM Electronically Signed By:Neema Cho LCSW Case Management Discharge Plan Note Case Management Discharge Discharge Order Complete? Answers: Yes Patient to Obtain Answers: Other Notes: [facility] Medications Transportation Arranged Answers: Other Notes: [facility] set up wheelchair for 14:30 Faxed Final Orders Answers: Yes Agency/Facility Transfer Answers: Yes Report Printed & Faxed to Receiving Agency Discharge Comments Notes: Pt. to d/c today to [facility]. Sharri hard faxed d/c paperwork to Lilli at [facility] [phone]. Lilli's contact # is . Also sent d/c paperwork via [employer]. RN states she already left report. tire room supervisor arranged by [facility] for 14:30 pear picker. Pt. is aware and ready to d/c. Date Signed: 02/26/2018 12:36 PM Electronically Signed By:Neema Cho LCSW Intervention Information
== END 2018-02-26 14:52 | DRG 305 ==
LOC: F3E 10:57 → OBSVTOIN 02-19 13:11
PROVIDERS: ADMIT Family Medicine; ATTEND Family Medicine
PROC: 0Y6N0ZB Detachment at Left Foot, Partial 2nd Ray, Open Approach (ICD-10-PCS; principal; 2018-02-19 10:15)
PROC: 02HV33Z Insertion of Infusion Device into Superior Vena Cava, Percutaneous Approach (ICD-10-PCS; 2018-02-23)
DX: E11.69 Type 2 diabetes mellitus with other specified complication (principal); M86.172 Other acute osteomyelitis, left ankle and foot; E11.40 Type 2 diabetes mellitus with diabetic neuropathy, unspecified; L03.116 Cellulitis of left lower limb; I10 Essential (primary) hypertension; E78.5 Hyperlipidemia, unspecified; Z89.422 Acquired absence of other left toe(s); Z59.0 Homelessness; B95.62 Methicillin resistant Staphylococcus aureus infection as the cause of diseases classified elsewhere; B96.20 Unspecified Escherichia coli [E. coli] as the cause of diseases classified elsewhere
CPT/HCPCS: 97161-GP; 97165-GO; 97530-GO; 97530-GP; 97535-GO; C1751; G0378; J1815; J1956; J2250; J2370; J2405; J2704; J2765; J3010; J3370

== ENCOUNTER 2018-05-24 10:31 | Day surgery (SDC) | payer MEDICAID ==
[2018-05-24] MEDS ORDERED: LR 1,000 ML IV ONE (10:37)
[2018-05-24] MEDS ORDERED: LIDOCAINE 1% 2 ML INJ ID PRN (10:37)
--- NOTE | 2018-05-24 11:53 | POSTANESTH ---
Post Anesthetic Evaluation Cardiovascular Status: Normal, Stable Respiratory Status: Normal, Stable Level of Consciousness/Mental Status: Can Participate in Eval, Mildly Sleepy, Arousable Pain Control: Adequate, Prn Tx Ordered Nausea/Vomiting Control: Adequate, Prn Tx Ordered Complications Possibly Related to Anesthesia: None Noted
--- NOTE | 2018-05-24 11:56 | PDANEPAE ---
ANE History of Present Illness 57 yo male with multiple medical problems for endoscopy. ANE Past Medical History - Cardiovascular History Hx Hypertension: Yes Hx Arrhythmias: No Hx Chest Pain: No Hx Coronary Artery / Peripheral Vascular Disease: Yes Hx CHF / Valvular Disease: No Hx Palpitations: No Cardiovascular History Comment: DIABETIC NEUROPATHY - Pulmonary History Hx COPD: No Hx Asthma/Reactive Airway Disease: No Hx Recent Upper Respiratory Infection: No Hx Oxygen in Use at Home: No Hx Sleep Apnea: No Sleep Apnea Screening Result - Last Documented: Positive - Neurologic History Hx Cerebrovascular Accident: No Hx Seizures: No Hx Dementia: No - Endocrine History Hx Diabetes: Yes Hypothyroid: No Hyperthyroid: No Endocrine History Comment: NIDDM - Renal History Hx Renal Disorders: Yes Renal History Comment: LT KIDNEY FUNCTIONS AT 50% - Liver History Hx Hepatic Disorders: No - Neurological & Psychiatric Hx Hx Neurological and Psychiatric Disorders: Yes Neurological / Psychiatric History Comment: BILAT NEUROPATHY OF FEET. ANXIETY, DEPRESSION - Cancer History Hx Cancer: Yes Cancer History Comment: COLON - Congenital Disorder History Hx Congenital Disorders: No - GI History GERD: moderate Hx Gastrointestinal Disorders: Yes Gastrointestinal History Comment: COLON POLYPS,REFLUX - Other Health History Other Health History: NON HEALING DIABETIC FOOT ULCER. MANAGED BY WOUND CLINIC. 21 INCHES OF INTESTINE REMOVED - Chronic Pain History Chronic Pain: No - Surgical History Prior Surgeries: LT FOOT 2ND TOE AMPUTATION 02/03/2018. COLECTOMY 2016. COLONOSCOPIES ANE Review of Systems Review of systems is: negative Review of Systems: - Exercise capacity METS (RN): 4 METS ANE Patient History - Allergies Allergies/Adverse Reactions: No Known Allergies Allergy (Verified 11/23/17 10:35) - Home Medications Home Medications: Atorvastatin Calcium [Lipitor 40 mg (*)] 40 mg PO DAILY06 11/23/17 [Last Taken 1 Day Ago ~05/23/18] FLUoxetine [Prozac 20 MG (*)] 20 mg PO DAILY06 11/23/17 [Last Taken 1 Day Ago ~ 05/23/18] Gabapentin [Neurontin 100 MG (*)] 100 mg PO DAILY06 11/23/17 [Last Taken 1 Day Ago ~05/23/18] Naltrexone HCl 50 mg INJ Q30D 11/23/17 [Last Taken 1 Day Ago ~05/23/18] Tamsulosin HCl [Flomax 0.4 MG (*)] 0.4 mg PO DAILY06 11/23/17 [Last Taken 1 Day Ago ~05/23/18] glipiZIDE [Glipizide] 2.5 mg PO DAILY06 11/23/17 [Last Taken 1 Day Ago ~05/23/18 ] metFORMIN HCL [Metformin HCl ER] 500 mg PO DAILY06 02/03/18 [Last Taken 1 Day Ago ~05/23/18] Linagliptin [Tradjenta] 5 mg PO DAILY06 02/17/18 [Last Taken 1 Day Ago ~05/23/18 ] - NPO status NPO Since - Liquids (Date): 05/24/18 NPO Since - Liquids (Time): 01:00 NPO Since - Solids (Date): 05/23/18 NPO Since - Solids (Time): 09:00 - Anes Hx Anes Hx: post operative nausea and vomiting - Smoking Hx Smoking Status: Former smoker Marijuana use: No - Alcohol Use Alcohol Use: Sober (quit EtOH about 4 months ago, h/o abuse) - Family Anes Hx Family Anes Hx: neg - N/A Family Hx Anesthesia Complications: none ANE Labs/Vital Signs - Vital Signs Blood Pressure: 121/75 Heart Rate: 63 Respiratory Rate: 18 O2 Sat (%): 96 Height: 170.18 cm Weight: 79.379 kg ANE Physical Exam - Airway Neck exam: FROM Mallampati Score: Class 2 Mouth exam: normal dental/mouth exam, poor dentition - Pulmonary Pulmonary: clear to auscultation - Cardiovascular Cardiovascular: regular rate and rhythym - ASA Status ASA Status: III ANE Anesthesia Plan Anesthesia Plan: GA with mask Total IV Anesthesia: Yes
--- NOTE | 2018-05-24 12:21 | PDGENHP ---
History & Physical Chief Complaint: phx colon cancer History of Present Illness: hx resection 10/2016 Pertinent Past, Social, Family History: dm, htn. fhx - no cc nor othere cacner. shx - chew tobacco, alcohol none since 4 months hx alcoholic Relevant Physical Exam: a+ox3. cta. s1s2. +bs, soft nt Cardiorespiratory Assessment: class 3
[2018-05-24] MEDS ORDERED: ONDANSETRON 4 MG/2 ML VIAL ONE (12:22)
[2018-05-24] MEDS ORDERED: PROPOFOL/EMULSION 500 MG/50 ML BOTTLE IV ONE (12:22)
[2018-05-24] MEDS ORDERED: LIDOCAINE 2% 5 ML SDV ONE (12:22)
[2018-05-24] MEDS ORDERED: LR 500 ML IV PRN (12:56)
[2018-05-24] MEDS ORDERED: PROMETHAZINE HCL 25 MG/ML INJ IVP PRN (12:56)
[2018-05-24] MEDS ORDERED: NALOXONE HCL 0.4 MG/ML INJ IVP PRN (12:56)
[2018-05-24] MEDS ORDERED: ALBUTEROL 3 ML DEYVIAL IH PRN (12:56)
[2018-05-24] MEDS ORDERED: ACETAMINOPHEN 500 MG TAB PO PRN (12:56)
--- NOTE | 2018-05-24 13:03 | GIREPORT ---
[facility] Surgical Services - Endoscopy Department Patient Name: Fareed Wagner Procedure Date: 05/24/2018 11:44 AM Patient Type: Outpatient Attending MD/ ER Physician: Alexey Finley Procedure: Colonoscopy Indications: High risk colon cancer surveillance: Personal history of colon cancer Providers: Jm Leon MD Referring MD: Paola Smith Medicines: See the Anesthesia note for documentation of the administered medicatio ns Complications: No immediate complications. Estimated blood loss: Minimal. Description of Procedure: After obtaining informed consent, the scope was passed under direct vis ion. Throughout the procedure, the patient's blood pressure, pulse, and oxyg en saturations were monitored continuously. The Colonoscope with irrigatio n channel was introduced through the anus and advanced to the terminal il eum, with identification of the appendiceal orifice and IC valve. The colono scopy was performed without difficulty. The patient tolerated the procedure w ell. The quality of the bowel preparation was good. Findings: The digital rectal exam was normal. The terminal ileum appeared normal. Two semi-sessile polyps were found in the hepatic flexure and ascending colon. The polyps were 6 to 8 mm in size. These polyps were removed wit h a cold snare. Resection and retrieval were complete. Estimated blood loss was minimal. There was evidence of a prior end-to-end colo-colonic anastomosis in th e mid rectum. This was patent. The anastomosis was traversed. Biopsies were t aken with a cold forceps for histology. Estimated blood loss was minimal. The exam was otherwise without abnormality. Estimated Blood Loss: Estimated blood loss was minimal. Post Op Diagnosis: - The examined portion of the ileum was normal. - Two 6 to 8 mm polyps at the hepatic flexure and in the ascending colo n, removed with a cold snare. Resected and retrieved. - Patent end-to-end colo-colonic anastomosis. Biopsied. - The examination was otherwise normal. Recommendation: - Await pathology results. - My office will call with the pathology result with 5-7 days. If you h ave not heard from my office by 11-04, do not assume the pathology is martha l, please call [phone] to get the pathology reults. - Repeat colonoscopy in 2 years for surveillance. - Resume previous diet. - Patient has a contact number available for emergencies. The signs and symptoms of potential delayed complications were discussed with the pat ient. Return to normal activities tomorrow. Written discharge instructions we re provided to the patient. - Discharge patient to home (ambulatory). - Return to primary care physician as previously scheduled. - Thank you for allowing me to help in your patient's care. Do not hesi [place]wood to call with any questions. Attending Participation: I personally performed the entire procedure. Edward Murray M.D Trevor Leon MD 05/24/2018 1:02:37 PM This report has been signed electronicallyMathew MD Edward Number of Addenda: 0 Note Initiated On: 05/24/2018 11:44 AM [email or web address]
[2018-05-24 14:15] VITALS: BP 111/78
== END 2018-05-24 14:16 | disposition home or self-care (01) ==
LOC: FSGY 10:31
PROVIDERS: ATTEND Internal Medicine Gastroenterology
DX: D12.2 Benign neoplasm of ascending colon (principal); Z98.0 Intestinal bypass and anastomosis status; Z85.038 Personal history of other malignant neoplasm of large intestine
CPT/HCPCS: J2405; J2704

== ENCOUNTER 2018-07-15 10:29 | Emergency (ER) | payer MEDICAID ==
[2018-07-15] MEDS ORDERED: NS 1,000 ML IV ONE (10:58)
--- NOTE | 2018-07-15 11:02 | EDPHY ---
HPI/HX/ROS/PE/MDM Narrative: CHIEF COMPLAINT: High blood sugar HPI: The patient is a 58-year-old male with type 2 diabetes, history of medication noncompliance, history of alcoholism. The patient was sent to the emergency department from [facility] where he has been for the last 2 days recovering from a binge drinking episode. Apparently the patient was scheduled to be transferred to a mental health facility a [place] but was sent to the emergency department because his blood sugar levels were in the high 300s of the [facility]. The patient himself denies any complaints. He confirms that he is not taking any of his medications for at least the last month. No vomiting or diarrhea. REVIEW OF SYSTEMS: Aside from elements discussed in the HPI, a comprehensive 10-point review of systems was reviewed and is negative. PMH: Includes type 2 diabetes, history of medication noncompliance, history of alcoholism, hypertension. Toe amputation. SOCIAL HISTORY: Homeless. History of alcohol abuse. PHYSICAL EXAM: General:Patient is alert, in no acute distress. ENT:Eyes are normal to inspection. ENT inspection normal. Neck: Normal inspection. Full range of motion. Respiratory:No respiratory distress. Breath sounds normal bilaterally. Respiratory rate normal. Cardiovascular: Regular rate and rhythm. Strong peripheral pulses. Normal cap refill. Abdomen:The abdomen is nontender to palpation. There are no peritoneal signs. There are normal bowel sounds. Back: Normal to inspection. No tenderness to palpation. Skin: Normal color. No rash. Warm and dry. Extremities: Normal appearance. Full range of motion. Neuro: Oriented x3. Normal motor function. Normal sensory function. MDM: This patient presents with hyperglycemia without evidence of anion gap acidosis or ketosis. This is undoubtedly secondary to medication noncompliance over the last month. I see no signs of DKA or need for emergent insulin. The patient is in process of being transferred to a mental health facility and our mental health evaluators are currently working on this. - Data Points Laboratory Results: Laboratory Results 07/15/18 10:55 07/15/18 07/15/18 07/15/18 12:05 11:02 10:55 POC Hgb 17.3 gm/dL gm/dL (13.7-17.5) POC Hct 51 % % (40-51) POC Sodium 136 mEq/L mEq/L (135-145) Sodium 136 mEq/L mEq/L (135-145) POC Potassium 3.5 mEq/L mEq/L (3.3-5.0) Potassium 3.7 mEq/L mEq/L (3.3-5.0) POC Chloride 98 mEq/L mEq/L (97-110) Chloride 97 mEq/L mEq/L (97-110) Carbon Dioxide 23 mEq/l mEq/l (22-31) Anion Gap 16 mEq/L mEq/L (8-16) POC BUN 22 mg/dL mg/dL (7-23) BUN 21 mg/dL mg/dL (7-23) Creatinine 0.8 mg/dL mg/dL (0.7-1.3) POC Creatinine 0.8 mg/dL mg/dL (0.7-1.3) Estimated GFR > 60 Glucose 276 mg/dL H mg/dL (70-100) POC Glucose 282 mg/dL H mg/dL (70-100) Calcium 9.6 mg/dL mg/dL (8.5-10.4) Urine Opiates Screen NEGATIVE (NEGATIVE) Urine Barbiturates NEGATIVE (NEGATIVE) Ur Phencyclidine Scrn NEGATIVE (NEGATIVE) Ur Amphetamine Screen NEGATIVE (NEGATIVE) U Benzodiazepines Scrn NEGATIVE (NEGATIVE) Urine Cocaine Screen NEGATIVE (NEGATIVE) U Marijuana (THC) Screen NEGATIVE (NEGATIVE) Medications Given: Discontinued Medications Sodium Chloride (Ns) 1,000 mls @ 0 mls/hr IV EDNOW ONE; Wide Open PRN Reason: Protocol Stop: 07/15/18 10:59 Last Admin: 07/15/18 11:13 Dose: 1,000 mls Point of Care Test Results: Chemistry 07/15/18 11:02 POC Sodium 136 mEq/L mEq/L (135-145) POC Potassium 3.5 mEq/L mEq/L (3.3-5.0) POC Chloride 98 mEq/L mEq/L (97-110) POC BUN 22 mg/dL mg/dL (7-23) POC Creatinine 0.8 mg/dL mg/dL (0.7-1.3) POC Glucose 282 mg/dL H mg/dL (70-100) ISTAT H&H 07/15/18 11:02 POC Hgb 17.3 gm/dL gm/dL (13.7-17.5) POC Hct 51 % % (40-51) General Time Seen by Provider: 07/15/18 10:52 Initial Vital Signs: Initial Vital Signs Temperature (C) 36.7 C 07/15/18 10:36 Heart Rate 94 07/15/18 10:36 Respiratory Rate 16 07/15/18 10:36 Blood Pressure 147/86 H 07/15/18 10:36 O2 Sat (%) 98 07/15/18 10:36 O2 Delivery Mode Room Air Allergies/Adverse Reactions: No Known Allergies Allergy (Verified 11/23/17 10:35) Home Medications: Medication Instructions Recorded Atorvastatin Calcium [Lipitor 40 40 mg PO DAILY06 11/23/17 mg (*)] FLUoxetine [Prozac 20 MG (*)] 20 mg PO DAILY06 11/23/17 Gabapentin [Neurontin 100 MG (*)] 100 mg PO DAILY06 11/23/17 Naltrexone HCl 50 mg INJ Q30D 11/23/17 Tamsulosin HCl [Flomax 0.4 MG (*)] 0.4 mg PO DAILY06 11/23/17 glipiZIDE [Glipizide] 2.5 mg PO DAILY06 11/23/17 metFORMIN HCL [Metformin HCl ER] 500 mg PO DAILY06 02/03/18 Linagliptin [Tradjenta] 5 mg PO DAILY06 02/17/18 Lisinopril [Zestril 2.5 mg (*)] 2.5 mg PO DAILY #30 tab 02/26/18 Vancomycin [Vancomycin (*)] 1.25 gm IV 0200,1400 #7 vial 02/26/18 levOFLOXACIN [levAQUIN (*)] 750 mg PO DAILY10 #20 tab 02/26/18 Departure - Departure Disposition: Home, Routine, Self-Care Clinical Impression: Type 2 diabetes mellitus, Hyperglycemia without ketosis Condition: Good Instructions: Diabetes and Exercise (ED) Additional Instructions: Follow-up with your primary doctor within 72 hours. Return to the Emergency Department for fever, chest pain, shortness of breath, increasing pain or other worsening of condition. Referrals: Paola Smith, PAC [Primary Care Provider] - As per Instructions
--- NOTE | 2018-07-15 11:26 | ASMTLCPROG ---
Notes Note: Notes: [facility] spoke with [facility] rep., Adri. Was informed pt was sent to [facility] ED for medical clearance. MH evaluation was completed at the [facility]. Dispo plan is once [facility] is medically [facility] agreed to help facilitate transfer when pt. is medically cleared. Date Signed: 07/15/2018 11:25 AM Electronically Signed By:Eve Neff
[2018-07-15 13:55] VITALS: BP 153/89
== END 2018-07-15 15:07 | disposition home or self-care (01) ==
DX: E11.65 Type 2 diabetes mellitus with hyperglycemia (principal); Z59.0 Homelessness
CPT/HCPCS: 80305; 82435-PO; 82565-PO; 82947-PO; 84132-PO; 84295-PO; 84520-PO; 85014-PO